=== PATIENT | female | born 1945 | race Caucasian/White ===

== ENCOUNTER 2017-08-18 16:22 | Emergency (ER) | payer MEDICARE, BC ==
[2017-08-18 17:36] LABS: ADD MAN DIFF? NO
[2017-08-18 17:37] LABS: BASO # 0.1 x10^3/uL (0.0-0.2); BASO % 1 % (0-3); EOS # 0.3 x10^3/uL (0.0-0.7); EOS % 3 % (0-3); HEMATOCRIT 41.6 % (36.0-47.0); HEMOGLOBIN 13.4 g/dL (12.0-15.5); LYMPH # 3.4 x10^3/uL (1.0-4.8); LYMPH % 29 % (24-48); MEAN CORPUSCULAR HEMOGLOBIN 29 pg (25-35); MEAN CORPUSCULAR HGB CONC 32 g/dL (31-37); MEAN CORPUSCULAR VOLUME 91 fL (79-100); MONO % 9 % (0-9); NEUT % 59 % (31-73); PLATELET COUNT 291 x10^3/uL (140-400); RED BLOOD COUNT 4.58 x10^6/uL (3.50-5.40); RED CELL DISTRIBUTION WIDTH 14.5 % (11.5-14.5); WHITE BLOOD COUNT 11.8 x10^3/uL (4.0-11.0)
[2017-08-18 17:51] LABS: ANION GAP 11 (6-14); BLOOD UREA NITROGEN 31 mg/dL (7-20); CARBON DIOXIDE 27 mmol/L (21-32); CHLORIDE 103 mmol/L (98-107); CREATININE 1.1 mg/dL (0.6-1.0); GFR 49.1; GLUCOSE 96 mg/dL (70-99); POTASSIUM 3.9 mmol/L (3.5-5.1); SODIUM 141 mmol/L (136-145)
[2017-08-18 17:57] LABS: ALBUMIN 3.1 g/dL (3.4-5.0); ALK PHOS 75 U/L (46-116); ALT (SGPT) 19 U/L (14-59); AST (SGOT) 15 U/L (15-37); DIRECT BILIRUBIN 0.1 mg/dL (0.0-0.2); TOTAL BILIRUBIN 0.3 mg/dL (0.2-1.0); TOTAL PROTEIN 7.7 g/dL (6.4-8.2)
[2017-08-18 18:00] LABS: TROPONINI < 0.017 ng/mL (0.000-0.055)
[2017-08-18 18:10] LABS: NT-PRO BNP 226 pg/mL (0-124)
[2017-08-18 18:11] LABS: CKMB MASS < 0.5 ng/mL (0.0-3.6); CREATINE KINASE 34 U/L (26-192)
[2017-08-18] MEDS: ACETAMINOPHEN 500 MG TABLET PO (18:27)
[2017-08-18 18:41] LABS: D-DIMER 0.37 ug/mlFEU (0.00-0.50)
[2017-08-18] MEDS: AZITHROMYCIN 250 MG TABLET. PO (19:32)
[2017-08-18] MEDS: BENZONATATE 100 MG CAPSULE. PO (19:32)
== END 2017-08-18 19:30 | disposition home or self-care (01) ==
LOC: ER 16:22
DX: J40 Bronchitis, not specified as acute or chronic (principal); R07.89 Other chest pain; R11.2 Nausea with vomiting, unspecified; E11.9 Type 2 diabetes mellitus without complications; J44.9 Chronic obstructive pulmonary disease, unspecified
CPT/HCPCS: 36415; 71046; 80048; 80076; 82553; 83880; 84484; 85025; 85379; 93005; 99285-25; Q0144

== ENCOUNTER 2021-10-11 18:49 | Inpatient (IN) | payer MEDICARE, BC ==
[~2021-10-11] VITALS: Ht 160 cm; Wt 122.0 kg
[~2021-10-11 18:49] MED LIST: ALBU2.5V8 INH; AZIT250T6 PO; BENZ100C PO; BUDE10.2 IH; BUPR150T8 PO; GABA300C18 PO; HYDR-2145 PO; HYDR-2761 PO; LEVO125T5 PO; MIRA25TA PO; MULT1TAB97 PO; OMEP20CA16 PO; PHEN37.53 PO; PRED20TA PO
[2021-10-11] MEDS ORDERED: IV NORMAL SALINE 1000ML BAG 1,000 ML IV ONE (19:30)
[2021-10-11] MEDS ORDERED: ONDANSETRON PF 4 MG/2 ML VIAL. IVP ONE (19:30)
[2021-10-11 19:40] LABS: BASO # 0.1 x10^3/uL (0.0-0.2); BASO % 1 % (0-3); EOS # 0.2 x10^3/uL (0.0-0.7); EOS % 2 % (0-3); HEMATOCRIT 40.2 % (36.0-47.0); LYMPH # 3.1 x10^3/uL (1.0-4.8); LYMPH % 32 % (24-48); MEAN CORPUSCULAR HEMOGLOBIN 30 pg (25-35); MEAN CORPUSCULAR HGB CONC 32 g/dL (31-37); MEAN CORPUSCULAR VOLUME 93 fL (79-100); MONO # 0.8 x10^3/uL (0.0-1.1); MONO % 8 % (0-9); NEUT # 5.4 x10^3/uL (1.8-7.7); NEUT % 57 % (31-73); PLATELET COUNT 348 x10^3/uL (140-400); RED BLOOD COUNT 4.34 x10^6/uL (3.50-5.40); RED CELL DISTRIBUTION WIDTH 14.4 % (11.5-14.5); WHITE BLOOD COUNT 9.6 x10^3/uL (4.0-11.0)
--- NOTE | 2021-10-11 19:41 | ED.ADGEN ---
Past Medical History Past Medical History: COPD, Diabetes-Type II, GERD, Hypertension, Hypothyroid, Other Additional Past Medical Histor: chronic low back pain Past Surgical History: Cholecystectomy, Hysterectomy, Knee Replacement, Other Additional Past Surgical Histo: gastric sleeve, cataracts Smoking Status: Former Smoker Alcohol Use: None Drug Use: None General Adult EDM: Chief Complaint: CHEST PAIN HPI: HPI: Patient is a 76 year old female coming in with right-sided chest pain. Patient states the pain is along her anterior rib cage below her right breast and travels around to the back. Patient states that she had COVID (despite being fully vaccinated) about 1.5 months ago and has never fully recovered. Patient states that she has been having diarrhea but over the past 2 weeks has been vomiting. States vomit is nonbloody nonbilious. Has not had any fevers or cough. States there is been to mucus in the emesis. Patient has a history of a hiatal hernia repair and gastric sleeve surgery, she is also had a cholecystectomy. Patient is complaining of epigastric pain as well. States she is worried she has had pneumonia because she has been hospitalized for it in the past. No recent sick contacts, recent travel, raw or undercooked food. Patient is also noted to be in A. fib with RVR, patient denies any history of irregular heartbeat, and does not take any blood thinners. She denies any left-sided chest pain. Patient states she has seen her primary care provider 1 week ago and 2 weeks ago. States she has not been getting any better. Review of Systems: Review of Systems: All other systems within normal limits except for as noted in the HPI Current Medications: Current Medications Medications (Trade) Dose Ordered Sig/Shane Start Time Stop Time Status Last Admin Dose Admin Info (CONTRAST GIVEN -- Rx MONITORING) 1 each PRN DAILY PRN 10/11/21 21:15 10/13/21 21:14 Iohexol (Omnipaque 350 Mg/ml) 80 ml 1X ONCE 10/11/21 21:30 10/11/21 21:31 DC 10/11/21 21:22 80 ML Ondansetron HCl (Zofran) 4 mg 1X ONCE 10/11/21 19:30 10/11/21 19:37 DC 10/11/21 19:58 4 MG Sodium Chloride 1,000 ml @ 1,000 mls/hr 1X ONCE 10/11/21 19:30 10/11/21 20:29 DC 10/11/21 19:59 1,000 MLS/HR Allergies: Allergies: Allergies Coded Allergies Type Severity Reaction Last Updated Verified No Known Drug Allergies 08/18/17 No Physical Exam: PE: Constitutional: Well developed, well nourished, no acute distress, non-toxic appearance. [] HENT: Normocephalic, atraumatic, bilateral external ears normal, nose normal. [] Eyes: PERRLA, conjunctiva normal, no discharge. [] Neck: No rigidity, supple, no stridor. [] Cardiovascular: Regular rate and rhythm, brisk cap refill. Tachycardic, irregularly irregular rhythm [] Lungs & Thorax: Non labored symmetric respirations, no tachypnea or respiratory distress. Lungs clear [] Abdomen: Soft, nondistended, epigastric tenderness without guarding or rebound. Skin: Warm, dry, no erythema, no rash. [] Back: Unremarkable Extremities: No deformities, range of motion grossly intact, no lower extremity edema [] Neurologic: Alert and oriented X 3, no focal deficits noted. [] Psychologic: Affect normal, judgement normal, mood normal. [] Current Patient Data: Labs: Laboratory Tests Test 10/11/21 19:09 10/11/21 20:08 10/11/21 20:36 White Blood Count 9.6 x10^3/uL (4.0-11.0) Red Blood Count 4.34 x10^6/uL (3.50-5.40) Hemoglobin 13.0 g/dL (12.0-15.5) Hematocrit 40.2 % (36.0-47.0) Mean Corpuscular Volume 93 fL (79-100) Mean Corpuscular Hemoglobin 30 pg (25-35) Mean Corpuscular Hemoglobin Concent 32 g/dL (31-37) Red Cell Distribution Width 14.4 % (11.5-14.5) Platelet Count 348 x10^3/uL (140-400) Neutrophils (%) (Auto) 57 % (31-73) Lymphocytes (%) (Auto) 32 % (24-48) Monocytes (%) (Auto) 8 % (0-9) Eosinophils (%) (Auto) 2 % (0-3) Basophils (%) (Auto) 1 % (0-3) Neutrophils # (Auto) 5.4 x10^3/uL (1.8-7.7) Lymphocytes # (Auto) 3.1 x10^3/uL (1.0-4.8) Monocytes # (Auto) 0.8 x10^3/uL (0.0-1.1) Eosinophils # (Auto) 0.2 x10^3/uL (0.0-0.7) Basophils # (Auto) 0.1 x10^3/uL (0.0-0.2) Prothrombin Time 13.0 SEC (11.7-14.0) Prothrombin Time INR 1.0 (0.8-1.1) D-Dimer ([place]) 0.57 ug/mlFEU (0.00-0.50) H Sodium Level 139 mmol/L (136-145) Potassium Level 3.9 mmol/L (3.5-5.1) Chloride Level 102 mmol/L (98-107) Carbon Dioxide Level 28 mmol/L (21-32) Anion Gap 9 (6-14) Blood Urea Nitrogen 15 mg/dL (7-20) Creatinine 1.2 mg/dL (0.6-1.0) H Estimated GFR (Cockcroft-Gault) 43.9 BUN/Creatinine Ratio 13 (6-20) Glucose Level 105 mg/dL (70-99) H Lactic Acid Level 1.1 mmol/L (0.4-2.0) Calcium Level 9.5 mg/dL (8.5-10.1) Phosphorus Level 2.9 mg/dL (2.6-4.7) Magnesium Level 1.8 mg/dL (1.8-2.4) Total Bilirubin 0.4 mg/dL (0.2-1.0) Aspartate Amino Transferase (AST) 12 U/L (15-37) L Alanine Aminotransferase (ALT) 17 U/L (14-59) Alkaline Phosphatase 76 U/L (46-116) Troponin I High Sensitivity 6 ng/L (4-50) DL-Lqe-E-Type Natriuretic Peptide 2070 pg/mL (0-124) H Total Protein 8.1 g/dL (6.4-8.2) Albumin 3.0 g/dL (3.4-5.0) L Albumin/Globulin Ratio 0.6 (1.0-1.7) L Lipase 28 U/L (73-393) L Influenza Type A Antigen Negative (NEGATIVE) Influenza Type B Antigen Negative (NEGATIVE) SARS-CoV-2 Antigen (Rapid) Negative (NEGATIVE) Urine Collection Type Unknown Urine Color Yellow Urine Clarity Clear Urine pH 5.5 (<5.0-8.0) Urine Specific [place] 1.025 (1.000-1.030) Urine Protein Negative mg/dL (NEG-TRACE) Urine Glucose (UA) Negative mg/dL (NEG) Urine Ketones (Stick) Trace mg/dL (NEG) Urine Blood Negative (NEG) Urine Nitrite Negative (NEG) Urine Bilirubin Small (NEG) Urine Urobilinogen Dipstick 0.2 mg/dL (0.2 mg/dL) Urine Leukocyte Esterase Negative (NEG) Urine RBC 0 /HPF (0-2) Urine WBC 1-4 /HPF (0-4) Urine Squamous Epithelial Cells Mod /LPF Urine Bacteria Few /HPF (0-FEW) Urine Hyaline Casts Few /HPF Urine Mucus Mod /LPF Laboratory Tests 10/11/21 19:09 Laboratory Tests 10/11/21 19:09 Vital Signs: Vital Signs Date Time Temp Pulse Resp B/P (MAP) Pulse Ox O2 Delivery O2 Flow Rate FiO2 10/11/21 21:32 124 24 144/60 (88) 96 Room Air 10/11/21 18:57 98.0 98.0 EKG: EKG: Irregular regular rhythm, heart rate 135 bpm, slight lax left axis deviation, no ST elevation or depression. When compared to EKG dated 08-18-17 she is in normal sinus rhythm at that time [] Heart Score: C/O Chest Pain: Yes HEART Score for Chest Pain: HEART Score for Chest Pain Response (Comments) Value History Slighlty/Non-Suspicious 0 ECG Nonspecific Repolarizatio 1 Age > 65 2 Risk Factors 1 or 2 Risk Factors 1 Troponin < Normal Limit 0 Total 4 Risk Factors: Risk Factors: DM, Current or recent (<one month) smoker, HTN, HLP, family history of CAD, obesity. Risk Scores: Score 0 - 3: 2.5% MACE over next 6 weeks - Discharge Home Score 4 - 6: 20.3% MACE over next 6 weeks - Admit for Clinical Observation Score 7 - 10: 72.7% MACE over next 6 weeks - Early Invasive Strategies Radiology/Procedures: Radiology/Procedures: [facility] [address] [place] [address] IMAGING REPORT Signed PATIENT: YADI CUNNINGHAM ACCOUNT: [id number] : 1945 LOCATION: ER AGE: 76 SEX: F EXAM STATUS: REG ER ORD. PHYSICIAN: LUIZ MESSER MD REASON: right chest pain and epigastric pain, OMNI 350 80 ML IV PROCEDURE: CT ANGIO CHEST W ABD PEL W/ INDICATION: Reason: right chest pain and epigastric pain, OMNI 350 80 ML IV / Spl. Instructions: / History: . COMPARISON: None TECHNIQUE: Axial CT images obtained through the chest, abdomen and pelvis with contrast. 3- dimensional angiographic images processed One or more of the following individualized dose reduction techniques were utilized for this examination: 1. Automated exposure control; 2. Adjustment of the mA and/or kV according to patient size; 3. Use of iterative reconstruction technique. FINDINGS: There is some pulmonary nodules measuring up to 6 mm within the left lung. Mild opacities at left greater than right lung base with a portion appearing linear. There is also some groundglass opacities. Right lung nodules are also seen including one anteriorly measuring 6 mm. Coronary artery calcific atherosclerosis. Severe atherosclerotic disease of the thoracic aorta. There is dilatation throughout the esophagus with intraluminal content as well as regions of wall thickening. There is a mass seen within the mediastinum abutting the esophagus and airway approximately 39 x 45 mm but a portion of this measurement includes mediastinal structures. No embolus in the main, right main or left main pulmonary artery with peripheral vessels obscured by motion. Atherosclerotic disease throughout the abdominal aorta. Degenerative changes throughout the spine with multilevel central canal and neural foraminal stenosis. Multiple ribs with angulation bilaterally could be from fractures of unknown age. Postcholecystectomy changes with prominence of the bile ducts which is a common finding postoperatively. Liver is mildly prominent in size. Fatty atrophy of the pancreas. There is a suspected small duodenal diverticulum. Spleen not grossly enlarged. Nonobstructive left renal stone measuring 15 mm without hydronephrosis. Urinary bladder is decompressed. Scoliotic curvature of the spine. Fat-containing umbilical hernia. Colonic diverticulosis. No dilated loops of bowel to suggest obstruction. Degenerative changes hips. IMPRESSION: * Mass is identified within the mediastinum. Differential considerations would include esophageal origin neoplasm or lymphadenopathy from causes such as lung origin neoplasm. The esophagus is also distended with intraluminal content and has some masslike wall thickening. * Bilateral lung nodules are identified and are indeterminate in nature and follow-up will be needed to ensure no growth. * Mild opacities at the lower lungs including linear and groundglass component. Could be from atelectasis but mild infiltrate is not excluded. * Atherosclerotic disease throughout the vasculature. * No evidence of bowel obstruction. * Angulations of the bilateral ribs which could be from rib fractures of unknown age. * Severe degenerative changes of the spine with multilevel central canal and neural foraminal stenosis. * Dilation of the bile ducts with some enhancement seen at the distal common bile duct. Could be secondary to a stricture within the area with distal common bile duct or ampullary mass also in differential. Electronically signed by: Joey Estes MD (10/11/2021 10:32 PM) [id number]- [id number] DICTATED and SIGNED BY: JOEY ESTES MD DATE: 10/11/21 [id number] [][facility] [address] [place] [address] IMAGING REPORT Signed PATIENT: YADI CUNNINGHAM ACCOUNT: [id number] : 1945 LOCATION: [address] [place] [address] AGE: 76 SEX: F EXAM STATUS: ADM IN ORD. PHYSICIAN: LUIZ MESSER MD REASON: RUQ, biliary dilation PROCEDURE: ABDOMEN LTD US ABDOMEN LIMITED History: Reason: RUQ, biliary dilation / Spl. Instructions: / History: Comparison: CT October 11, 2021. Technique: Transabdominal ultrasound images are obtained of the right upper quadrant. Findings: Liver is normal in echogenicity. Right hepatic lobe measures 13.7 cm. Portal flow is hepatopedal. Prior cholecystectomy. Common bile duct not identified due to overlying structures. Visualized pancreas not well seen due to overlying bowel gas. The right kidney measures 9.7 x 3.6 x 4.3 cm. No hydronephrosis. Aorta and IVC not well seen due to overlying structures. IMPRESSION: 1. Degraded evaluation. No definite acute abdominal pathology. 2. Common bile is not identified. Prior cholecystectomy. If persistent clinical concern, MRI/MRCP can further evaluate. Electronically signed by: Stephan Rudolph DO (10/12/2021 12:43 AM) [facility] DICTATED and SIGNED BY: STEPHAN RUDOLPH DO DATE: 10/12/21 [id number] 0 Course & Med Decision Making: Course & Med Decision Making Pertinent Labs and Imaging studies reviewed. (See chart for details) Patient in new onset A. fib with RVR. Will admit on diltiazem for cardiology evaluation. [] Dragon Disclaimer: Dragon Disclaimer: This electronic medical record was generated, in whole or in part, using a voice recognition dictation system. Departure Departure Impression: Primary Impression: Nausea & vomiting Additional Impression: New onset atrial fibrillation Disposition: ADMITTED INPATIENT Admitting Physician: HIMS Condition: STABLE Referrals: ANGELICA MATTHEWS DO (PCP) Problem Qualifiers LUIZ MESSER MD Oct 11, 2021 19:41
[2021-10-11 19:57] LABS: CALCIUM 9.5 mg/dL (8.5-10.1); CREATININE 1.2 mg/dL (0.6-1.0); GFR 43.9; POTASSIUM 3.9 mmol/L (3.5-5.1)
[2021-10-11 19:59] LABS: D-DIMER 0.57 ug/mlFEU (0.00-0.50)
[2021-10-11 20:03] LABS: ALBUMIN/GLOBULIN RATIO 0.6 (1.0-1.7); MAGNESIUM 1.8 mg/dL (1.8-2.4); PHOSPHORUS 2.9 mg/dL (2.6-4.7); TOTAL BILIRUBIN 0.4 mg/dL (0.2-1.0); TOTAL PROTEIN 8.1 g/dL (6.4-8.2)
--- NOTE | 2021-10-11 20:13 | EKG ---
[facility] [address] [place] [address] Test Date: 2021-10-11 Test Time: 19:04:14 Pat Name: YADI CUNNINGHAM Department: Room: Gender: F [employer]: : 1945 Requested By: LUIZ MESSER Order Number: [id number] Reading MD: Anil Alvarado Measurements Intervals [place] Rate: 135 P: [place]: QRS: -5 QRSD: 90 T: 22 QT: 288 QTc: 436 Interpretive Statements ATRIAL FIBRILLATION WITH RVR Electronically Signed On 10-12-2021 18:31:45 SEEING [employer]G TE[employer]ER by Anil Alvarado
[2021-10-11 20:47] LABS: INFLUENZA A PATIENT NEGATIVE (NEGATIVE); INFLUENZA B PATIENT NEGATIVE (NEGATIVE)
[2021-10-11 20:50] LABS: BILIRUBIN,URINE SMALL (NEG); CLARITY,URINE CLEAR; COLOR,URINE YELLOW; NITRITE,URINE NEGATIVE (NEG); PH,URINE 5.5 (<5.0-8.0); PROTEIN,URINE NEGATIVE (NEG-TRACE); UROBILINOGEN,URINE 0.2 mg/dL (0.2 mg/dL)
[2021-10-11 20:52] LABS: BACTERIA,URINE FEW /HPF (0-FEW); HYALINE CASTS, URINE FEW /HPF; RBC,URINE 0 /HPF (0-2)
[2021-10-11] MEDS ORDERED: CONTRAST GIVEN. MC PRN (21:15)
[2021-10-11] MEDS ORDERED: IOHEXOL 350 MG/ML 100 ML VIAL. IV ONE (21:30)
[2021-10-11] MEDS ORDERED: dilTIAZem HCL 125 MG in IV DEXTROSE 5% 100ML 100 ML IV ONE (22:00)
[2021-10-11] MEDS ORDERED: ACETAMINOPHEN 325 MG TABLET. PO PRN (22:15)
[2021-10-11] MEDS ORDERED: ONDANSETRON PF 4 MG/2 ML VIAL. IVP PRN (22:15)
[2021-10-11] MEDS ORDERED: fentaNYL PF VIAL 100 MCG/2 ML VIAL IVP PRN (22:15)
--- NOTE | 2021-10-11 22:34 | RAD ---
INDICATION: Reason: right chest pain and epigastric pain, OMNI 350 80 ML IV / Spl. Instructions: / H istory: . COMPARISON: None TECHNIQUE: Axial CT images obtained through the chest, abdomen and pelvis with contrast. 3-dimensional angiograp hic images processed One or more of the following individualized dose reduction techniques were utilized for this examinat ion: 1. Automated exposure control; 2. Adjustment of the mA and/or kV according to patient size; 3 . Use of iterative reconstruction technique. FINDINGS: There is some pulmonary nodules measuring up to 6 mm within the left lung. Mild opacities at left gre ater than right lung base with a portion appearing linear. There is also some groundglass opacities. Right lung nodules are also seen including one anteriorly m easuring 6 mm. Coronary artery calcific atherosclerosis. Severe atherosclerotic disease of the thoracic aorta. There is dilatation throughout the esophagus with intraluminal content as well as regions of wall thi ckening. There is a mass seen within the mediastinum abutting the esophagus and airway approximately 39 x 45 mm but a portion of this measurement includes mediastinal structures. No embolus in the main, right main or left main pulmonary artery with peripheral vessels obscured by motion. Atherosclerotic disease throughout the abdominal aorta. Degenerative changes throughout the spine with multilevel central canal and neural foraminal stenosis . Multiple ribs with angulation bilaterally could be from fractures of unknown age. Postcholecystectomy changes with prominence of the bile ducts which is a common finding postoperative ly. Liver is mildly prominent in size. Fatty atrophy of the pancreas. There is a suspected small duodenal diverticulum. Spleen not grossly enlarged. Nonobstructive left renal stone measuring 15 mm without hydronephrosis. Urinary bladder is decompress ed. Scoliotic curvature of the spine. Fat-containing umbilical hernia. Colonic diverticulosis. No dilated loops of bowel to suggest obstruction. Degenerative changes hips. IMPRESSION: * Mass is identified within the mediastinum. Differential considerations would include esophageal or igin neoplasm or lymphadenopathy from causes such as lung origin neoplasm. The esophagus is also dist ended with intraluminal content and has some masslike wall thickening. * Bilateral lung nodules are identified and are indeterminate in nature and follow-up will be needed to ensure no growth. * Mild opacities at the lower lungs including linear and groundglass component. Could be from atelec tasis but mild infiltrate is not excluded. * Atherosclerotic disease throughout the vasculature. * No evidence of bowel obstruction. * Angulations of the bilateral ribs which could be from rib fractures of unknown age. * Severe degenerative changes of the spine with multilevel central canal and neural foraminal stenos is. * Dilation of the bile ducts with some enhancement seen at the distal common bile duct. Could be sec ondary to a stricture within the area with distal common bile duct or ampullary mass also in differen tial. Electronically signed by: Robert Scales MD (10/11/2021 10:32 PM) [id number]
[2021-10-12] VITALS (9 sets, daily range): BP systolic 79–124; BP diastolic 50–90
--- NOTE | 2021-10-12 00:45 | RAD ---
US ABDOMEN LIMITED History: Reason: RUQ, biliary dilation / Spl. Instructions: / History: Comparison: CT October 11, 2021. Technique: Transabdominal ultrasound images are obtained of the right upper quadrant. Findings: Liver is normal in echogenicity. Right hepatic lobe measures 13.7 cm. Portal flow is hepatopedal. Prior cholecystectomy. Common bile duct not identified due to overlying structures. Visualized pancreas not well seen due to overlying bowel gas. The right kidney measures 9.7 x 3.6 x 4.3 cm. No hydronephrosis. Aorta and IVC not well seen due to overlying structures. IMPRESSION: 1. Degraded evaluation. No definite acute abdominal pathology. 2. Common bile is not identified. Prior cholecystectomy. If persistent clinical concern, MRI/MRCP ca n further evaluate. Electronically signed by: Stephan Rudolph DO (10/12/2021 12:43 AM) [facility]
[2021-10-12 04:20] LABS: BASO % 0 % (0-3); EOS # 0.1 x10^3/uL (0.0-0.7); EOS % 2 % (0-3); HEMATOCRIT 35.4 % (36.0-47.0); HEMOGLOBIN 11.5 g/dL (12.0-15.5); LYMPH # 2.3 x10^3/uL (1.0-4.8); LYMPH % 30 % (24-48); MEAN CORPUSCULAR HEMOGLOBIN 31 pg (25-35); MEAN CORPUSCULAR HGB CONC 33 g/dL (31-37); MEAN CORPUSCULAR VOLUME 94 fL (79-100); MONO # 0.8 x10^3/uL (0.0-1.1); MONO % 10 % (0-9); NEUT # 4.4 x10^3/uL (1.8-7.7); NEUT % 58 % (31-73); PLATELET COUNT 279 x10^3/uL (140-400); RED BLOOD COUNT 3.78 x10^6/uL (3.50-5.40); WHITE BLOOD COUNT 7.7 x10^3/uL (4.0-11.0)
[2021-10-12] MEDS ORDERED: dilTIAZem HCL 125 MG in IV DEXTROSE 5% 100ML 100 ML IV PRN (04:30)
[2021-10-12] MEDS ORDERED: CALC500T54 PO (05:16)
[2021-10-12] MEDS ORDERED: LEVO100T5 PO (05:16)
[2021-10-12] MEDS ORDERED: HYDR-2765 PO (05:16)
[2021-10-12] MEDS ORDERED: URSO250T3 PO (05:16)
[2021-10-12] MEDS ORDERED: VIBE75TA PO (05:16)
[2021-10-12] MEDS ORDERED: METF10007 PO (05:20)
[2021-10-12 05:21] LABS: CALCIUM 8.7 mg/dL (8.5-10.1); CREATININE 1.1 mg/dL (0.6-1.0); GFR 48.6; POTASSIUM 3.6 mmol/L (3.5-5.1)
[2021-10-12] MEDS: LEVOTHYROXINE 100 MCG TABLET PO SCH (10:11)
[2021-10-12] MEDS: buPROPion SR 150 MG TABLET.SA PO SCH ×2 (10:16→20:29)
[2021-10-12] MEDS: GABAPENTIN 300 MG CAPSULE. PO SCH ×2 (10:16→20:29)
[2021-10-12] MEDS: HYDROcodone/APAP 7.5/325MG 1 TAB TABLET PO PRN ×2 (12:11→21:08)
--- NOTE | 2021-10-12 12:23 | PDOC1 ---
History and Physical Date of Admission Date of Admission DATE: 10/12/21 TIME: 12:17 Source Source: Chart review, Patient History of Present Illness History of Present Illness Ms Ca is a 76 year old female admit from ER with acute right-sided chest pain. she thought pleurisy because the pain went ot her back, no palpitations, soem shortnes of breath. She was nauseated and vomited last night Pain 6/10, better thsi AM She had recent COVID, was vaccinated and has been weak since, with occassional GI symtoms. admti for A. fib with RVR, no prior history, feels better on cardizem gtt this AM Past Medical History Past Medical History peripheral neuropathy Cardiovascular: HTN Pulmonary: No pertinent hx GI: GERD Musculoskeletal: low back pain, Osteoarthritis Rheumatologic: No pertinent hx Endocrine: Diabetes Current Problem List Problem List Problems Medical Problems: (1) Nausea & vomiting Status: Acute (2) New onset atrial fibrillation Status: Acute Current Medications Current Medications Current Medications Sodium Chloride 1,000 ml @ 1,000 mls/hr 1X ONCE IV Last administered on 10/11/21at 19:59; Start 10/11/21 at 19:30; Stop 10/11/21 at 20:29; Status DC Ondansetron HCl (Zofran) 4 mg 1X ONCE IVP Last administered on 10/11/21at 19:58; Start 10/11/21 at 19:30; Stop 10/11/21 at 19:37; Status DC Iohexol (Omnipaque 350 Mg/ml) 80 ml 1X ONCE IV Last administered on 10/11/21at 21:22; Start 10/11/21 at 21:30; Stop 10/11/21 at 21:31; Status DC Info (CONTRAST GIVEN -- Rx MONITORING) 1 each PRN DAILY PRN MC SEE COMMENTS; Start 10/11/21 at 21:15; Stop 10/13/21 at 21:14 Diltiazem HCl (Cardizem Iv Push) 10 mg 1X ONCE IVP Last administered on 10/11/21at 21:59; Start 10/11/21 at 22:00; Stop 10/11/21 at 22:01; Status DC Diltiazem HCl 125 mg/Sodium Chloride 125 ml @ 5 mls/hr 1X ONCE IV ; Start 10/01 08/24 at 22:00; Stop 10/11/21 at 21:48; Status DC Diltiazem HCl 125 mg/Dextrose 125 ml @ 5 mls/hr 1X ONCE IV Last administered on 10/11/21at 22:00; Start 10/11/21 at 22:00; Stop 10/12/21 at 11:26; Status DC Ondansetron HCl (Zofran) 4 mg PRN Q8HRS PRN IVP NAUSEA/VOMITING 1ST CHOICE; Start 10/11/21 at 22:15; Stop 10/12/21 at 22:14 Fentanyl Citrate (Fentanyl 2ml Vial) 50 mcg PRN Q1HR PRN IVP SEVERE PAIN 7-10; Start 10/11/21 at 22:15; Stop 10/12/21 at 22:14 Acetaminophen (Tylenol) 650 mg PRN Q4HRS PRN PO FEVER > 100.3'F; Start 10/11/21 at 22:15; Stop 10/12/21 at 22:14 Diltiazem HCl 125 mg/Dextrose 125 ml @ 5 mls/hr CONT PRN PRN IV AFIB Last administered on 10/12/21at 04:26; Start 10/12/21 at 04:30 Bupropion HCl (Wellbutrin Sr) 150 mg BID PO Last administered on 10/12/21at 10:16; Start 10/12/21 at 11:00 Gabapentin (Neurontin) 300 mg TID PO Last administered on 10/12/21at 10:16; Start 10/12/21 at 12:00 Acetaminophen/ Hydrocodone Bitart (Lortab 7.5/325) 1 tab PRN Q6HRS PRN PO PAIN Last administered on 10/12/21at 12:11; Start 10/12/21 at 10:15 Levothyroxine Sodium (Synthroid) 100 mcg DAILY06 PO ; Start 10/12/21 at 11:00 Active Scripts Active Reported Metformin Hcl 1,000 Mg Tablet 1,000 Mg PO BIDWMEALS Metformin 1000mg tab, takes 1/2 to 2 tabs daily Calcium (Calcium Carbonate) 500 Mg Tab.chew 600 Mg PO DAILY Mary (Ursodiol) 250 Mg Tablet 300 Mg PO DAILY Levothyroxine Sodium 100 Mcg Tablet 1 Tab PO DAILY Hydrocodone-Apap 7.5-325 (Hydrocodone Bit/Acetaminophen) 1 Tab Tablet 1 Tab PO PRN Q6HRS PRN Gemtesa (Vibegron) 75 Mg Tablet 75 Mg PO DAILY Phentermine Hcl 37.5 Mg Capsule 1 Cap PO DAILYWBKFT Omeprazole 20 Mg Capsule. 1 Cap PO DAILY Hydrochlorothiazide Tablet (Hydrochlorothiazide) 25 Mg Tablet 1 Tab PO DAILY Gabapentin (Gabapentin) 300 Mg Capsule 300 Mg PO TID Daily Multiple Vitamin (Multivitamin) 1 Each Tablet 1 Each PO DAILY Wellbutrin Sr (Bupropion Hcl) 150 Mg Tablet.er 1 Tab PO BID Allergies Allergies: Coded Allergies: No Known Drug Allergies (Unverified , 08/18/17) ROS General: No: Chills, Night Sweats, Fatigue, Malaise, Appetite, Other PSYCHOLOGICAL ROS: YES: Anxiety, Sleep disturbances; No: Behavioral Disorder, Concentration difficultie, Decreased libido, Depression, Disorientation, Hallucinations, Hostility, Irritablity, Memory difficulties, Mood Swings, Obsessive thoughts, Other Eyes: No Blurry vision, No Decreased vision, No Double vision, No Dry eyes, No Excessive tearing, No Eye Pain, No Itchy Eyes, No Loss of vision, No P hotophobia, No Scotomata, No Uses contacts, No Uses glasses, No Other HEENT: No: Heacaches, Visual Changes, Hearing change, Nasal congestion, Nasal discharge, Oral lesions, Sinus pain, Sore Throat, Epistaxis, Sneezing, Snoring, Tinnitus, Vertigo, Vocal changes, Other Respiratory: YES: Pleuritic Pain; No: Cough, Hemoptysis, Orthopnea, Shortness of breath, SOB with excertion, Sputum Changes, Stridor, Tachypnea, Wheezing, Other Cardiovascular: yes Chest Pain; No Palpitations, No Orthopnea, No Paroxysmal Noc. Dyspnea, No Edema, No Lt Headedness, No Other Gastrointestinal: Yes Nausea; No Vomiting, No Abdominal Pain, No Diarrhea, No Constipation, No Melena, No Hematochezia, No Other Genitourinary: No Dysuria, No Frequency, No Incontinence, No Hematuria, No Retention, No Discharge, No Urgency, No Pain, No Flank Pain, No Other, No , No , No , No , No , No , No Musculoskeletal: Yes Joint Pain, Yes Joint Stiffness Neurological: No Behavorial Changes, No Bowel/Bladder ControlChng, No Confusion, No Dizziness, No Gait Disturbance, No Headaches, No Impaired Coord/balance, No Memory Loss, No Numbness/Tingling, No Seizures, No Speech Problems, No Tremors, No Visual Changes, No Weakness, No Other Skin: No Dry Skin, No Eczema, No Hair Changes, No Lumps, No Mole Changes, No Mottling, No Nail Changes, No Pruritus, No Rash, No Skin Lesion Changes, No Other, No Acne Physical Exam General: Alert, Oriented X3, Cooperative, mild distress HEENT: Atraumatic Lungs: Clear to auscultation Heart: S1S2, RRR Abdomen: Soft (obese) Extremities: No clubbing Skin: No significant lesion Neuro: Normal speech, Normal tone, Sensation intact Psych/Mental Status: Mental status NL, Mood NL Vitals Vitals Vital Signs Date Time Temp Pulse Resp B/P (MAP) Pulse Ox O2 Delivery O2 Flow Rate FiO2 10/12/21 11:00 98.1 80 18 97/56 (70) Room Air 98.1 10/12/21 07:00 94 10/12/21 00:25 3.0 Labs Labs Laboratory Tests Test 10/11/21 19:09 10/11/21 20:08 10/11/21 20:36 10/12/21 04:00 White Blood Count 9.6 x10^3/uL (4.0-11.0) 7.7 x10^3/uL (4.0-11.0) Red Blood Count 4.34 x10^6/uL (3.50-5.40) 3.78 x10^6/uL (3.50-5.40) Hemoglobin 13.0 g/dL (12.0-15.5) 11.5 g/dL (12.0-15.5) Hematocrit 40.2 % (36.0-47.0) 35.4 % (36.0-47.0) Mean Corpuscular Volume 93 fL (79-100) 94 fL (79-100) Mean Corpuscular Hemoglobin 30 pg (25-35) 31 pg (25-35) Mean Corpuscular Hemoglobin Concent 32 g/dL (31-37) 33 g/dL (31-37) Red Cell Distribution Width 14.4 % (11.5-14.5) 14.0 % (11.5-14.5) Platelet Count 348 x10^3/uL (140-400) 279 x10^3/uL (140-400) Neutrophils (%) (Auto) 57 % (31-73) 58 % (31-73) Lymphocytes (%) (Auto) 32 % (24-48) 30 % (24-48) Monocytes (%) (Auto) 8 % (0-9) 10 % (0-9) Eosinophils (%) (Auto) 2 % (0-3) 2 % (0-3) Basophils (%) (Auto) 1 % (0-3) 0 % (0-3) Neutrophils # (Auto) 5.4 x10^3/uL (1.8-7.7) 4.4 x10^3/uL (1.8-7.7) Lymphocytes # (Auto) 3.1 x10^3/uL (1.0-4.8) 2.3 x10^3/uL (1.0-4.8) Monocytes # (Auto) 0.8 x10^3/uL (0.0-1.1) 0.8 x10^3/uL (0.0-1.1) Eosinophils # (Auto) 0.2 x10^3/uL (0.0-0.7) 0.1 x10^3/uL (0.0-0.7) Basophils # (Auto) 0.1 x10^3/uL (0.0-0.2) 0.0 x10^3/uL (0.0-0.2) Prothrombin Time 13.0 SEC (11.7-14.0) Prothromb Time International Ratio 1.0 (0.8-1.1) D-Dimer ([place]) 0.57 ug/mlFEU (0.00-0.50) Sodium Level 139 mmol/L (136-145) 141 mmol/L (136-145) Potassium Level 3.9 mmol/L (3.5-5.1) 3.6 mmol/L (3.5-5.1) Chloride Level 102 mmol/L (98-107) 105 mmol/L (98-107) Carbon Dioxide Level 28 mmol/L (21-32) 28 mmol/L (21-32) Anion Gap 9 (6-14) 8 (6-14) Blood Urea Nitrogen 15 mg/dL (7-20) 15 mg/dL (7-20) Creatinine 1.2 mg/dL (0.6-1.0) 1.1 mg/dL (0.6-1.0) Estimated GFR (Cockcroft-Gault) 43.9 48.6 BUN/Creatinine Ratio 13 (6-20) Glucose Level 105 mg/dL (70-99) 101 mg/dL (70-99) Lactic Acid Level 1.1 mmol/L (0.4-2.0) Calcium Level 9.5 mg/dL (8.5-10.1) 8.7 mg/dL (8.5-10.1) Phosphorus Level 2.9 mg/dL (2.6-4.7) Magnesium Level 1.8 mg/dL (1.8-2.4) Total Bilirubin 0.4 mg/dL (0.2-1.0) Aspartate Amino Transf (AST/SGOT) 12 U/L (15-37) Alanine Aminotransferase (ALT/SGPT) 17 U/L (14-59) Alkaline Phosphatase 76 U/L (46-116) Troponin I High Sensitivity 6 ng/L (4-50) VT-Oof-D-Type Natriuretic Peptide 2070 pg/mL (0-124) Total Protein 8.1 g/dL (6.4-8.2) Albumin 3.0 g/dL (3.4-5.0) Albumin/Globulin Ratio 0.6 (1.0-1.7) Lipase 28 U/L (73-393) Influenza Type A Antigen Negative (NEGATIVE) Influenza Type B Antigen Negative (NEGATIVE) SARS-CoV-2 Antigen (Rapid) Negative (NEGATIVE) Urine Collection Type Unknown Urine Color Yellow Urine Clarity Clear Urine pH 5.5 (<5.0-8.0) Urine Specific [place] 1.025 (1.000-1.030) Urine Protein Negative mg/dL (NEG-TRACE) Urine Glucose (UA) Negative mg/dL (NEG) Urine Ketones (Stick) Trace mg/dL (NEG) Urine Blood Negative (NEG) Urine Nitrite Negative (NEG) Urine Bilirubin Small (NEG) Urine Urobilinogen Dipstick 0.2 mg/dL (0.2 mg/dL) Urine Leukocyte Esterase Negative (NEG) Urine RBC 0 /HPF (0-2) Urine WBC 1-4 /HPF (0-4) Urine Squamous Epithelial Cells Mod /LPF Urine Bacteria Few /HPF (0-FEW) Urine Hyaline Casts Few /HPF Urine Mucus Mod /LPF Test 10/12/21 07:48 10/12/21 11:27 Glucose (Fingerstick) 93 mg/dL (70-99) 106 mg/dL (70-99) Laboratory Tests Test 10/11/21 19:09 10/11/21 20:08 10/11/21 20:36 10/12/21 04:00 White Blood Count 9.6 x10^3/uL (4.0-11.0) 7.7 x10^3/uL (4.0-11.0) Red Blood Count 4.34 x10^6/uL (3.50-5.40) 3.78 x10^6/uL (3.50-5.40) Hemoglobin 13.0 g/dL (12.0-15.5) 11.5 g/dL (12.0-15.5) Hematocrit 40.2 % (36.0-47.0) 35.4 % (36.0-47.0) Mean Corpuscular Volume 93 fL (79-100) 94 fL (79-100) Mean Corpuscular Hemoglobin 30 pg (25-35) 31 pg (25-35) Mean Corpuscular Hemoglobin Concent 32 g/dL (31-37) 33 g/dL (31-37) Red Cell Distribution Width 14.4 % (11.5-14.5) 14.0 % (11.5-14.5) Platelet Count 348 x10^3/uL (140-400) 279 x10^3/uL (140-400) Neutrophils (%) (Auto) 57 % (31-73) 58 % (31-73) Lymphocytes (%) (Auto) 32 % (24-48) 30 % (24-48) Monocytes (%) (Auto) 8 % (0-9) 10 % (0-9) Eosinophils (%) (Auto) 2 % (0-3) 2 % (0-3) Basophils (%) (Auto) 1 % (0-3) 0 % (0-3) Neutrophils # (Auto) 5.4 x10^3/uL (1.8-7.7) 4.4 x10^3/uL (1.8-7.7) Lymphocytes # (Auto) 3.1 x10^3/uL (1.0-4.8) 2.3 x10^3/uL (1.0-4.8) Monocytes # (Auto) 0.8 x10^3/uL (0.0-1.1) 0.8 x10^3/uL (0.0-1.1) Eosinophils # (Auto) 0.2 x10^3/uL (0.0-0.7) 0.1 x10^3/uL (0.0-0.7) Basophils # (Auto) 0.1 x10^3/uL (0.0-0.2) 0.0 x10^3/uL (0.0-0.2) Prothrombin Time 13.0 SEC (11.7-14.0) Prothromb Time International Ratio 1.0 (0.8-1.1) D-Dimer ([place]) 0.57 ug/mlFEU (0.00-0.50) Sodium Level 139 mmol/L (136-145) 141 mmol/L (136-145) Potassium Level 3.9 mmol/L (3.5-5.1) 3.6 mmol/L (3.5-5.1) Chloride Level 102 mmol/L (98-107) 105 mmol/L (98-107) Carbon Dioxide Level 28 mmol/L (21-32) 28 mmol/L (21-32) Anion Gap 9 (6-14) 8 (6-14) Blood Urea Nitrogen 15 mg/dL (7-20) 15 mg/dL (7-20) Creatinine 1.2 mg/dL (0.6-1.0) 1.1 mg/dL (0.6-1.0) Estimated GFR (Cockcroft-Gault) 43.9 48.6 BUN/Creatinine Ratio 13 (6-20) Glucose Level 105 mg/dL (70-99) 101 mg/dL (70-99) Lactic Acid Level 1.1 mmol/L (0.4-2.0) Calcium Level 9.5 mg/dL (8.5-10.1) 8.7 mg/dL (8.5-10.1) Phosphorus Level 2.9 mg/dL (2.6-4.7) Magnesium Level 1.8 mg/dL (1.8-2.4) Total Bilirubin 0.4 mg/dL (0.2-1.0) Aspartate Amino Transf (AST/SGOT) 12 U/L (15-37) Alanine Aminotransferase (ALT/SGPT) 17 U/L (14-59) Alkaline Phosphatase 76 U/L (46-116) Troponin I High Sensitivity 6 ng/L (4-50) GV-Tyn-A-Type Natriuretic Peptide 2070 pg/mL (0-124) Total Protein 8.1 g/dL (6.4-8.2) Albumin 3.0 g/dL (3.4-5.0) Albumin/Globulin Ratio 0.6 (1.0-1.7) Lipase 28 U/L (73-393) Influenza Type A Antigen Negative (NEGATIVE) Influenza Type B Antigen Negative (NEGATIVE) SARS-CoV-2 Antigen (Rapid) Negative (NEGATIVE) Urine Collection Type Unknown Urine Color Yellow Urine Clarity Clear Urine pH 5.5 (<5.0-8.0) Urine Specific [place] 1.025 (1.000-1.030) Urine Protein Negative mg/dL (NEG-TRACE) Urine Glucose (UA) Negative mg/dL (NEG) Urine Ketones (Stick) Trace mg/dL (NEG) Urine Blood Negative (NEG) Urine Nitrite Negative (NEG) Urine Bilirubin Small (NEG) Urine Urobilinogen Dipstick 0.2 mg/dL (0.2 mg/dL) Urine Leukocyte Esterase Negative (NEG) Urine RBC 0 /HPF (0-2) Urine WBC 1-4 /HPF (0-4) Urine Squamous Epithelial Cells Mod /LPF Urine Bacteria Few /HPF (0-FEW) Urine Hyaline Casts Few /HPF Urine Mucus Mod /LPF Test 10/12/21 07:48 10/12/21 11:27 Glucose (Fingerstick) 93 mg/dL (70-99) 106 mg/dL (70-99) VTE Prophylaxis Ordered VTE Prophylaxis Devices: No VTE Pharmacological Prophylaxi: Yes Assessment/Plan Assessment/Plan acute diastolic CHF atrial fib with RVR, cardizem gtt, transition to PO morbid obesity, BMI 46 Dm2 htn, hold meds, hypotensive current depression anxiety, stable peripheral neuropathy admit tele, CV unit Justifications for Admission Other Justification DAGMAR CORADO MD Oct 12, 2021 12:22
--- NOTE | 2021-10-12 14:08 | PDOC2 ---
CONSULT Date of Consult Date of Consult DATE: 10/12/21 TIME: 14:02 Reason for Consult Reason for Consult: Atrial fibrillation. Referring Physician Referring Physician: Dr. Walden Identification/Chief Complaint Chief Complaint The patient is a 76-year-old female who was admitted with episodes of nausea and vomiting, mild right-sided chest pain and apparent new onset of atrial fibrillation. 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 An abdominal ultrasound showed no acute changes. Lab testing includes a Deborah a troponin of 6 and an elevated BNP at 2070. Patient's rate has improved overnight and is now 104. She is also feeling mildly better. She denies any history of coronary disease, congestive heart failure or cardiac arrhythmias. She does have a history of hypertension, COPD and diabetes. Her chief complaint this morning is her back pain which she states is a chronic problem. Source Source: Chart review, Patient History of Present Illness Reason for Visit: As above under chief complaint. Past Medical History Cardiovascular: HTN Pulmonary: COPD GI: GERD Musculoskeletal: low back pain, Osteoarthritis Rheumatologic: No pertinent hx Endocrine: Diabetes Past Surgical History Past Surgical History: Cholecystectomy, Cataract Removal, Total knee replacement, Hysterectomy Family History Family History: Hypertension Social History Quit ALCOHOL: none Current Problem List Problem List Problems Medical Problems: (1) Nausea & vomiting Status: Acute (2) New onset atrial fibrillation Status: Acute Current Medications Current Medications Current Medications Sodium Chloride 1,000 ml @ 1,000 mls/hr 1X ONCE IV Last administered on 10/11/21at 19:59; Start 10/11/21 at 19:30; Stop 10/11/21 at 20:29; Status DC Ondansetron HCl (Zofran) 4 mg 1X ONCE IVP Last administered on 10/11/21at 19:58; Start 10/11/21 at 19:30; Stop 10/11/21 at 19:37; Status DC Iohexol (Omnipaque 350 Mg/ml) 80 ml 1X ONCE IV Last administered on 10/11/21at 21:22; Start 10/11/21 at 21:30; Stop 10/11/21 at 21:31; Status DC Info (CONTRAST GIVEN -- Rx MONITORING) 1 each PRN DAILY PRN MC SEE COMMENTS; Start 10/11/21 at 21:15; Stop 10/13/21 at 21:14 Diltiazem HCl (Cardizem Iv Push) 10 mg 1X ONCE IVP Last administered on 2at 21:59; Start 10/11/21 at 22:00; Stop 10/11/21 at 22:01; Status DC Diltiazem HCl 125 mg/Sodium Chloride 125 ml @ 5 mls/hr 1X ONCE IV ; Start 10/11/21 at 22:00; Stop 10/11/21 at 21:48; Status DC Diltiazem HCl 125 mg/Dextrose 125 ml @ 5 mls/hr 1X ONCE IV Last administered on 10/11/21at 22:00; Start 10/11/21 at 22:00; Stop 10/12/21 at 11:26; Status DC Ondansetron HCl (Zofran) 4 mg PRN Q8HRS PRN IVP NAUSEA/VOMITING 1ST CHOICE; Start 10/11/21 at 22:15; Stop 10/12/21 at 22:14 Fentanyl Citrate (Fentanyl 2ml Vial) 50 mcg PRN Q1HR PRN IVP SEVERE PAIN 7-10; Start 10/11/21 at 22:15; Stop 10/12/21 at 22:14 Acetaminophen (Tylenol) 650 mg PRN Q4HRS PRN PO FEVER > 100.3'F; Start 10/11/21 at 22:15; Stop 10/12/21 at 22:14 Diltiazem HCl 125 mg/Dextrose 125 ml @ 5 mls/hr CONT PRN PRN IV AFIB Last administered on 10/12/21at 04:26; Start 10/12/21 at 04:30; Stop 10/12/21 at 12:19; Status DC Bupropion HCl (Wellbutrin Sr) 150 mg BID PO Last administered on 10/12/21at 10:16; Start 10/12/21 at 11:00 Gabapentin (Neurontin) 300 mg TID PO Last administered on 10/12/21at 10:16; Start 10/12/21 at 12:00 Acetaminophen/ Hydrocodone Bitart (Lortab 7.5/325) 1 tab PRN Q6HRS PRN PO PAIN Last administered on 10/12/21at 12:11; Start 10/12/21 at 10:15 Levothyroxine Sodium (Synthroid) 100 mcg DAILY06 PO ; Start 10/12/21 at 11:00 Diltiazem HCl (Cardizem 24hr ) 240 mg DAILY PO Last administered on 10/12/21at 12:40; Start 10/12/21 at 12:30 Active Scripts Active Reported Metformin Hcl 1,000 Mg Tablet 1,000 Mg PO BIDWMEALS Metformin 1000mg tab, takes 1/2 to 2 tabs daily Calcium (Calcium Carbonate) 500 Mg Tab.chew 600 Mg PO DAILY Mary (Ursodiol) 250 Mg Tablet 300 Mg PO DAILY Levothyroxine Sodium 100 Mcg Tablet 1 Tab PO DAILY Hydrocodone-Apap 7.5-325 (Hydrocodone Bit/Acetaminophen) 1 Tab Tablet 1 Tab PO PRN Q6HRS PRN Gemtesa (Vibegron) 75 Mg Tablet 75 Mg PO DAILY Phentermine Hcl 37.5 Mg Capsule 1 Cap PO DAILYWBKFT Omeprazole 20 Mg Capsule.dr 1 Cap PO DAILY Hydrochlorothiazide Tablet (Hydrochlorothiazide) 25 Mg Tablet 1 Tab PO DAILY Gabapentin (Gabapentin) 300 Mg Capsule 300 Mg PO TID Daily Multiple Vitamin (Multivitamin) 1 Each Tablet 1 Each PO DAILY Wellbutrin Sr (Bupropion Hcl) 150 Mg Tablet.er 1 Tab PO BID Allergies Allergies: Coded Allergies: No Known Drug Allergies (Unverified , 08/18/17) ROS Respiratory: YES: Shortness of breath Cardiovascular: yes Chest Pain Gastrointestinal: Yes Nausea, Yes Abdominal Pain Physical Exam General: mild distress HEENT: Atraumatic Lungs: Other (Slightly decreased breath sounds) Heart: Other (Irregularly irregular) Abdomen: Normal bowel sounds Vitals VITALS Vital Signs Date Time Temp Pulse Resp B/P (MAP) Pulse Ox O2 Delivery O2 Flow Rate FiO2 10/12/21 12:40 80 97/56 10/12/21 11:00 98.1 18 Room Air 98.1 10/12/21 07:00 94 10/12/21 00:25 3.0 Labs Labs Laboratory Tests Test 10/11/21 19:09 10/11/21 20:08 10/11/21 20:36 10/12/21 04:00 White Blood Count 9.6 x10^3/uL (4.0-11.0) 7.7 x10^3/uL (4.0-11.0) Red Blood Count 4.34 x10^6/uL (3.50-5.40) 3.78 x10^6/uL (3.50-5.40) Hemoglobin 13.0 g/dL (12.0-15.5) 11.5 g/dL (12.0-15.5) Hematocrit 40.2 % (36.0-47.0) 35.4 % (36.0-47.0) Mean Corpuscular Volume 93 fL (79-100) 94 fL (79-100) Mean Corpuscular Hemoglobin 30 pg (25-35) 31 pg (25-35) Mean Corpuscular Hemoglobin Concent 32 g/dL (31-37) 33 g/dL (31-37) Red Cell Distribution Width 14.4 % (11.5-14.5) 14.0 % (11.5-14.5) Platelet Count 348 x10^3/uL (140-400) 279 x10^3/uL (140-400) Neutrophils (%) (Auto) 57 % (31-73) 58 % (31-73) Lymphocytes (%) (Auto) 32 % (24-48) 30 % (24-48) Monocytes (%) (Auto) 8 % (0-9) 10 % (0-9) Eosinophils (%) (Auto) 2 % (0-3) 2 % (0-3) Basophils (%) (Auto) 1 % (0-3) 0 % (0-3) Neutrophils # (Auto) 5.4 x10^3/uL (1.8-7.7) 4.4 x10^3/uL (1.8-7.7) Lymphocytes # (Auto) 3.1 x10^3/uL (1.0-4.8) 2.3 x10^3/uL (1.0-4.8) Monocytes # (Auto) 0.8 x10^3/uL (0.0-1.1) 0.8 x10^3/uL (0.0-1.1) Eosinophils # (Auto) 0.2 x10^3/uL (0.0-0.7) 0.1 x10^3/uL (0.0-0.7) Basophils # (Auto) 0.1 x10^3/uL (0.0-0.2) 0.0 x10^3/uL (0.0-0.2) Prothrombin Time 13.0 SEC (11.7-14.0) Prothromb Time International Ratio 1.0 (0.8-1.1) D-Dimer ([place]) 0.57 ug/mlFEU (0.00-0.50) Sodium Level 139 mmol/L (136-145) 141 mmol/L (136-145) Potassium Level 3.9 mmol/L (3.5-5.1) 3.6 mmol/L (3.5-5.1) Chloride Level 102 mmol/L (98-107) 105 mmol/L (98-107) Carbon Dioxide Level 28 mmol/L (21-32) 28 mmol/L (21-32) Anion Gap 9 (6-14) 8 (6-14) Blood Urea Nitrogen 15 mg/dL (7-20) 15 mg/dL (7-20) Creatinine 1.2 mg/dL (0.6-1.0) 1.1 mg/dL (0.6-1.0) Estimated GFR (Cockcroft-Gault) 43.9 48.6 BUN/Creatinine Ratio 13 (6-20) Glucose Level 105 mg/dL (70-99) 101 mg/dL (70-99) Lactic Acid Level 1.1 mmol/L (0.4-2.0) Calcium Level 9.5 mg/dL (8.5-10.1) 8.7 mg/dL (8.5-10.1) Phosphorus Level 2.9 mg/dL (2.6-4.7) Magnesium Level 1.8 mg/dL (1.8-2.4) Total Bilirubin 0.4 mg/dL (0.2-1.0) Aspartate Amino Transf (AST/SGOT) 12 U/L (15-37) Alanine Aminotransferase (ALT/SGPT) 17 U/L (14-59) Alkaline Phosphatase 76 U/L (46-116) Troponin I High Sensitivity 6 ng/L (4-50) MH-Ewf-I-Type Natriuretic Peptide 2070 pg/mL (0-124) Total Protein 8.1 g/dL (6.4-8.2) Albumin 3.0 g/dL (3.4-5.0) Albumin/Globulin Ratio 0.6 (1.0-1.7) Lipase 28 U/L (73-393) Influenza Type A Antigen Negative (NEGATIVE) Influenza Type B Antigen Negative (NEGATIVE) SARS-CoV-2 Antigen (Rapid) Negative (NEGATIVE) Urine Collection Type Unknown Urine Color Yellow Urine Clarity Clear Urine pH 5.5 (<5.0-8.0) Urine Specific [place] 1.025 (1.000-1.030) Urine Protein Negative mg/dL (NEG-TRACE) Urine Glucose (UA) Negative mg/dL (NEG) Urine Ketones (Stick) Trace mg/dL (NEG) Urine Blood Negative (NEG) Urine Nitrite Negative (NEG) Urine Bilirubin Small (NEG) Urine Urobilinogen Dipstick 0.2 mg/dL (0.2 mg/dL) Urine Leukocyte Esterase Negative (NEG) Urine RBC 0 /HPF (0-2) Urine WBC 1-4 /HPF (0-4) Urine Squamous Epithelial Cells Mod /LPF Urine Bacteria Few /HPF (0-FEW) Urine Hyaline Casts Few /HPF Urine Mucus Mod /LPF Test 10/12/21 07:48 10/12/21 11:27 Glucose (Fingerstick) 93 mg/dL (70-99) 106 mg/dL (70-99) Laboratory Tests Test 10/11/21 19:09 10/11/21 20:08 10/11/21 20:36 10/12/21 04:00 White Blood Count 9.6 x10^3/uL (4.0-11.0) 7.7 x10^3/uL (4.0-11.0) Red Blood Count 4.34 x10^6/uL (3.50-5.40) 3.78 x10^6/uL (3.50-5.40) Hemoglobin 13.0 g/dL (12.0-15.5) 11.5 g/dL (12.0-15.5) Hematocrit 40.2 % (36.0-47.0) 35.4 % (36.0-47.0) Mean Corpuscular Volume 93 fL (79-100) 94 fL (79-100) Mean Corpuscular Hemoglobin 30 pg (25-35) 31 pg (25-35) Mean Corpuscular Hemoglobin Concent 32 g/dL (31-37) 33 g/dL (31-37) Red Cell Distribution Width 14.4 % (11.5-14.5) 14.0 % (11.5-14.5) Platelet Count 348 x10^3/uL (140-400) 279 x10^3/uL (140-400) Neutrophils (%) (Auto) 57 % (31-73) 58 % (31-73) Lymphocytes (%) (Auto) 32 % (24-48) 30 % (24-48) Monocytes (%) (Auto) 8 % (0-9) 10 % (0-9) Eosinophils (%) (Auto) 2 % (0-3) 2 % (0-3) Basophils (%) (Auto) 1 % (0-3) 0 % (0-3) Neutrophils # (Auto) 5.4 x10^3/uL (1.8-7.7) 4.4 x10^3/uL (1.8-7.7) Lymphocytes # (Auto) 3.1 x10^3/uL (1.0-4.8) 2.3 x10^3/uL (1.0-4.8) Monocytes # (Auto) 0.8 x10^3/uL (0.0-1.1) 0.8 x10^3/uL (0.0-1.1) Eosinophils # (Auto) 0.2 x10^3/uL (0.0-0.7) 0.1 x10^3/uL (0.0-0.7) Basophils # (Auto) 0.1 x10^3/uL (0.0-0.2) 0.0 x10^3/uL (0.0-0.2) Prothrombin Time 13.0 SEC (11.7-14.0) Prothromb Time International Ratio 1.0 (0.8-1.1) D-Dimer ([place]) 0.57 ug/mlFEU (0.00-0.50) Sodium Level 139 mmol/L (136-145) 141 mmol/L (136-145) Potassium Level 3.9 mmol/L (3.5-5.1) 3.6 mmol/L (3.5-5.1) Chloride Level 102 mmol/L (98-107) 105 mmol/L (98-107) Carbon Dioxide Level 28 mmol/L (21-32) 28 mmol/L (21-32) Anion Gap 9 (6-14) 8 (6-14) Blood Urea Nitrogen 15 mg/dL (7-20) 15 mg/dL (7-20) Creatinine 1.2 mg/dL (0.6-1.0) 1.1 mg/dL (0.6-1.0) Estimated GFR (Cockcroft-Gault) 43.9 48.6 BUN/Creatinine Ratio 13 (6-20) Glucose Level 105 mg/dL (70-99) 101 mg/dL (70-99) Lactic Acid Level 1.1 mmol/L (0.4-2.0) Calcium Level 9.5 mg/dL (8.5-10.1) 8.7 mg/dL (8.5-10.1) Phosphorus Level 2.9 mg/dL (2.6-4.7) Magnesium Level 1.8 mg/dL (1.8-2.4) Total Bilirubin 0.4 mg/dL (0.2-1.0) Aspartate Amino Transf (AST/SGOT) 12 U/L (15-37) Alanine Aminotransferase (ALT/SGPT) 17 U/L (14-59) Alkaline Phosphatase 76 U/L (46-116) Troponin I High Sensitivity 6 ng/L (4-50) WF-Nhh-K-Type Natriuretic Peptide 2070 pg/mL (0-124) Total Protein 8.1 g/dL (6.4-8.2) Albumin 3.0 g/dL (3.4-5.0) Albumin/Globulin Ratio 0.6 (1.0-1.7) Lipase 28 U/L (73-393) Influenza Type A Antigen Negative (NEGATIVE) Influenza Type B Antigen Negative (NEGATIVE) SARS-CoV-2 Antigen (Rapid) Negative (NEGATIVE) Urine Collection Type Unknown Urine Color Yellow Urine Clarity Clear Urine pH 5.5 (<5.0-8.0) Urine Specific [place] 1.025 (1.000-1.030) Urine Protein Negative mg/dL (NEG-TRACE) Urine Glucose (UA) Negative mg/dL (NEG) Urine Ketones (Stick) Trace mg/dL (NEG) Urine Blood Negative (NEG) Urine Nitrite Negative (NEG) Urine Bilirubin Small (NEG) Urine Urobilinogen Dipstick 0.2 mg/dL (0.2 mg/dL) Urine Leukocyte Esterase Negative (NEG) Urine RBC 0 /HPF (0-2) Urine WBC 1-4 /HPF (0-4) Urine Squamous Epithelial Cells Mod /LPF Urine Bacteria Few /HPF (0-FEW) Urine Hyaline Casts Few /HPF Urine Mucus Mod /LPF Test 10/12/21 07:48 10/12/21 11:27 Glucose (Fingerstick) 93 mg/dL (70-99) 106 mg/dL (70-99) Images Images Imaging as above. Assessment/Plan Assessment/Plan 1. Atrial fibrillation. Apparently new onset. Rate is controlled on her present medications. We will continue present medications and increase activity as tolerated. We will check an echocardiogram. Will start anticoagulation. 2. Nausea and vomiting. Significantly improved. Testing as above. 3. Possible diastolic heart failure. Continue present treatments. Echocardiogram as above. 4. History of hypertension. We will continue to monitor. 5. Diabetes mellitus. As per the primary service. DAMARIS SIMON MD Oct 12, 2021 14:08
[2021-10-12] MEDS: APIXABAN 5 MG TABLET. PO SCH ×2 (14:28→20:29)
[2021-10-13 03:00] VITALS: BP 122/63
[2021-10-13] MEDS: LEVOTHYROXINE 100 MCG TABLET PO SCH (05:46)
[2021-10-13 07:00] VITALS: BP 103/57
[2021-10-13] MEDS: buPROPion SR 150 MG TABLET.SA PO SCH (08:22)
[2021-10-13] MEDS: APIXABAN 5 MG TABLET. PO SCH (08:24)
[2021-10-13] MEDS: GABAPENTIN 300 MG CAPSULE. PO SCH ×2 (08:24→13:31)
[2021-10-13 11:00] VITALS: BP 105/48
--- NOTE | 2021-10-13 13:25 | PDOC ---
PROGRESS NOTES Date of Service DATE: 10/13/21 TIME: 13:23 Subjective Subjective Patient seen and examined Objective Objective Vital Signs Date Time Temp Pulse Resp B/P (MAP) Pulse Ox O2 Delivery O2 Flow Rate FiO2 10/13/21 11:00 95 18 105/48 (67) 99 Room Air 10/13/21 08:00 3.0 10/13/21 07:00 98.0 98.0 Intake and Output 10/13/21 07:00 Intake Total 660 ml Output Total 150 ml Balance 510 ml Intake Oral 660 ml Output Urine Total 150 ml # Voids 3 # Bowel Movements 1 Physical Exam Abdomen: Normal bowel sounds Heart: Other (Irregularly irregular rate of 90) General: No acute distress Lungs: Other (Minimally decreased breath sounds) Assessment Assessment Problems Medical Problems: (1) Nausea & vomiting Status: Acute (2) New onset atrial fibrillation Status: Acute 1. Atrial fibrillation. Apparently new onset. Rate is controlled on her present medications. We will continue present medications and increase activity as tolerated. Echo pending. On anticoagulation. 2. Nausea and vomiting. Significantly improved. Testing as above. 3. Possible diastolic heart failure. Continue present treatments. Echocardiogram pending. 4. History of hypertension. We will continue to monitor. 5. Diabetes mellitus. As per the primary service. Comment Review of Relevant I have reviewed the following items michelle (where applicable) has been applied. Labs Laboratory Tests Test 10/11/21 19:09 10/11/21 20:08 10/11/21 20:36 10/12/21 04:00 White Blood Count 9.6 x10^3/uL (4.0-11.0) 7.7 x10^3/uL (4.0-11.0) Red Blood Count 4.34 x10^6/uL (3.50-5.40) 3.78 x10^6/uL (3.50-5.40) Hemoglobin 13.0 g/dL (12.0-15.5) 11.5 g/dL (12.0-15.5) Hematocrit 40.2 % (36.0-47.0) 35.4 % (36.0-47.0) Mean Corpuscular Volume 93 fL (79-100) 94 fL (79-100) Mean Corpuscular Hemoglobin 30 pg (25-35) 31 pg (25-35) Mean Corpuscular Hemoglobin Concent 32 g/dL (31-37) 33 g/dL (31-37) Red Cell Distribution Width 14.4 % (11.5-14.5) 14.0 % (11.5-14.5) Platelet Count 348 x10^3/uL (140-400) 279 x10^3/uL (140-400) Neutrophils (%) (Auto) 57 % (31-73) 58 % (31-73) Lymphocytes (%) (Auto) 32 % (24-48) 30 % (24-48) Monocytes (%) (Auto) 8 % (0-9) 10 % (0-9) Eosinophils (%) (Auto) 2 % (0-3) 2 % (0-3) Basophils (%) (Auto) 1 % (0-3) 0 % (0-3) Neutrophils # (Auto) 5.4 x10^3/uL (1.8-7.7) 4.4 x10^3/uL (1.8-7.7) Lymphocytes # (Auto) 3.1 x10^3/uL (1.0-4.8) 2.3 x10^3/uL (1.0-4.8) Monocytes # (Auto) 0.8 x10^3/uL (0.0-1.1) 0.8 x10^3/uL (0.0-1.1) Eosinophils # (Auto) 0.2 x10^3/uL (0.0-0.7) 0.1 x10^3/uL (0.0-0.7) Basophils # (Auto) 0.1 x10^3/uL (0.0-0.2) 0.0 x10^3/uL (0.0-0.2) Prothrombin Time 13.0 SEC (11.7-14.0) Prothromb Time International Ratio 1.0 (0.8-1.1) D-Dimer ([place]) 0.57 ug/mlFEU (0.00-0.50) Sodium Level 139 mmol/L (136-145) 141 mmol/L (136-145) Potassium Level 3.9 mmol/L (3.5-5.1) 3.6 mmol/L (3.5-5.1) Chloride Level 102 mmol/L (98-107) 105 mmol/L (98-107) Carbon Dioxide Level 28 mmol/L (21-32) 28 mmol/L (21-32) Anion Gap 9 (6-14) 8 (6-14) Blood Urea Nitrogen 15 mg/dL (7-20) 15 mg/dL (7-20) Creatinine 1.2 mg/dL (0.6-1.0) 1.1 mg/dL (0.6-1.0) Estimated GFR (Cockcroft-Gault) 43.9 48.6 BUN/Creatinine Ratio 13 (6-20) Glucose Level 105 mg/dL (70-99) 101 mg/dL (70-99) Lactic Acid Level 1.1 mmol/L (0.4-2.0) Calcium Level 9.5 mg/dL (8.5-10.1) 8.7 mg/dL (8.5-10.1) Phosphorus Level 2.9 mg/dL (2.6-4.7) Magnesium Level 1.8 mg/dL (1.8-2.4) Total Bilirubin 0.4 mg/dL (0.2-1.0) Aspartate Amino Transf (AST/SGOT) 12 U/L (15-37) Alanine Aminotransferase (ALT/SGPT) 17 U/L (14-59) Alkaline Phosphatase 76 U/L (46-116) Troponin I High Sensitivity 6 ng/L (4-50) SQ-Mcb-Y-Type Natriuretic Peptide 2070 pg/mL (0-124) Total Protein 8.1 g/dL (6.4-8.2) Albumin 3.0 g/dL (3.4-5.0) Albumin/Globulin Ratio 0.6 (1.0-1.7) Lipase 28 U/L (73-393) Coronavirus (COVID-19)(PCR) Positive (NOT DETECTD) Influenza Type A Antigen Negative (NEGATIVE) Influenza Type B Antigen Negative (NEGATIVE) SARS-CoV-2 Antigen (Rapid) Negative (NEGATIVE) Urine Collection Type Unknown Urine Color Yellow Urine Clarity Clear Urine pH 5.5 (<5.0-8.0) Urine Specific [place] 1.025 (1.000-1.030) Urine Protein Negative mg/dL (NEG-TRACE) Urine Glucose (UA) Negative mg/dL (NEG) Urine Ketones (Stick) Trace mg/dL (NEG) Urine Blood Negative (NEG) Urine Nitrite Negative (NEG) Urine Bilirubin Small (NEG) Urine Urobilinogen Dipstick 0.2 mg/dL (0.2 mg/dL) Urine Leukocyte Esterase Negative (NEG) Urine RBC 0 /HPF (0-2) Urine WBC 1-4 /HPF (0-4) Urine Squamous Epithelial Cells Mod /LPF Urine Bacteria Few /HPF (0-FEW) Urine Hyaline Casts Few /HPF Urine Mucus Mod /LPF Test 10/12/21 07:48 10/12/21 11:27 10/12/21 17:22 10/12/21 19:56 Glucose (Fingerstick) 93 mg/dL (70-99) 106 mg/dL (70-99) 79 mg/dL (70-99) 135 mg/dL (70-99) Test 10/13/21 07:38 10/13/21 11:49 Glucose (Fingerstick) 85 mg/dL (70-99) 104 mg/dL (70-99) Laboratory Tests Test 10/12/21 17:22 10/12/21 19:56 10/13/21 07:38 10/13/21 11:49 Glucose (Fingerstick) 79 mg/dL (70-99) 135 mg/dL (70-99) 85 mg/dL (70-99) 104 mg/dL (70-99) Microbiology 10/11/21 Blood Culture - Preliminary, Resulted NO GROWTH AFTER 1 DAY Medications Current Medications Sodium Chloride 1,000 ml @ 1,000 mls/hr 1X ONCE IV Last administered on 10/11/21at 19:59; Start 10/11/21 at 19:30; Stop 10/11/21 at 20:29; Status DC Ondansetron HCl (Zofran) 4 mg 1X ONCE IVP Last administered on 10/11/21at 19:58; Start 10/11/21 at 19:30; Stop 10/11/21 at 19:37; Status DC Iohexol (Omnipaque 350 Mg/ml) 80 ml 1X ONCE IV Last administered on 10/11/21at 21:22; Start 10/11/21 at 21:30; Stop 10/11/21 at 21:31; Status DC Info (CONTRAST GIVEN -- Rx MONITORING) 1 each PRN DAILY PRN MC SEE COMMENTS; Start 10/11/21 at 21:15; Stop 10/13/21 at 21:14 Diltiazem HCl (Cardizem Iv Push) 10 mg 1X ONCE IVP Last administered on 10/11/21at 21:59; Start 10/11/21 at 22:00; Stop 10/11/21 at 22:01; Status DC Diltiazem HCl 125 mg/Sodium Chloride 125 ml @ 5 mls/hr 1X ONCE IV ; Start 10/11/21 at 22:00; Stop 10/11/21 at 21:48; Status DC Diltiazem HCl 125 mg/Dextrose 125 ml @ 5 mls/hr 1X ONCE IV Last administered on 10/11/21at 22:00; Start 10/11/21 at 22:00; Stop 10/12/21 at 11:26; Status DC Ondansetron HCl (Zofran) 4 mg PRN Q8HRS PRN IVP NAUSEA/VOMITING 1ST CHOICE; Start 10/11/21 at 22:15; Stop 10/12/21 at 22:14; Status DC Fentanyl Citrate (Fentanyl 2ml Vial) 50 mcg PRN Q1HR PRN IVP SEVERE PAIN 7-10; Start 10/11/21 at 22:15; Stop 10/12/21 at 22:14; Status DC Acetaminophen (Tylenol) 650 mg PRN Q4HRS PRN PO FEVER > 100.3'F; Start 10/11/21 at 22:15; Stop 10/12/21 at 22:14; Status DC Diltiazem HCl 125 mg/Dextrose 125 ml @ 5 mls/hr CONT PRN PRN IV AFIB Last administered on 10/12/21at 04:26; Start 10/12/21 at 04:30; Stop 10/12/21 at 12:19; Status DC Bupropion HCl (Wellbutrin Sr) 150 mg BID PO Last administered on 10/13/21at 08:22; Start 10/12/21 at 11:00 Gabapentin (Neurontin) 300 mg TID PO Last administered on 10/13/21at 08:24; Start 10/12/21 at 12:00 Acetaminophen/ Hydrocodone Bitart (Lortab 7.5/325) 1 tab PRN Q6HRS PRN PO PAIN Last administered on 10/12/21at 21:08; Start 10/12/21 at 10:15 Levothyroxine Sodium (Synthroid) 100 mcg DAILY06 PO Last administered on 10/13/21at 05:46; Start 10/12/21 at 11:00 Diltiazem HCl (Cardizem 24hr Cd) 240 mg DAILY PO Last administered on 10/13/21at 08:24; Start 10/12/21 at 12:30 Apixaban (Eliquis) 5 mg BID PO Last administered on 10/13/21at 08:24; Start 10/12/21 at 14:30 Active Scripts Active Reported Metformin Hcl 1,000 Mg Tablet 1,000 Mg PO BIDWMEALS Metformin 1000mg tab, takes 1/2 to 2 tabs daily Calcium (Calcium Carbonate) 500 Mg Tab.chew 600 Mg PO DAILY Mary (Ursodiol) 250 Mg Tablet 300 Mg PO DAILY Levothyroxine Sodium 100 Mcg Tablet 1 Tab PO DAILY Hydrocodone-Apap 7.5-325 (Hydrocodone Bit/Acetaminophen) 1 Tab Tablet 1 Tab PO PRN Q6HRS PRN Gemtesa (Vibegron) 75 Mg Tablet 75 Mg PO DAILY Phentermine Hcl 37.5 Mg Capsule 1 Cap PO DAILYWBKFT Omeprazole 20 Mg Capsule.dr 1 Cap PO DAILY Hydrochlorothiazide Tablet (Hydrochlorothiazide) 25 Mg Tablet 1 Tab PO DAILY Gabapentin (Gabapentin) 300 Mg Capsule 300 Mg PO TID Daily Multiple Vitamin (Multivitamin) 1 Each Tablet 1 Each PO DAILY Wellbutrin Sr (Bupropion Hcl) 150 Mg Tablet.er 1 Tab PO BID Vitals/I & O Vital Sign - Last 24 Hours 10/12/21 10/12/21 10/12/21 10/12/21 15:00 19:00 19:41 21:08 Temp 97.4 97.9 97.4 97.9 Pulse 92 83 Resp 18 18 B/P (MAP) 119/76 (90) 117/58 (77) Pulse Ox 96 94 O2 Delivery Room Air Room Air Room Air Room Air 10/12/21 10/13/21 10/13/21 10/13/21 23:00 03:00 07:00 08:00 Temp 98.5 98.0 98.0 98.5 98.0 98.0 Pulse 93 90 90 Resp 20 21 18 B/P (MAP) 101/90 (94) 122/63 (82) 103/57 (72) Pulse Ox 95 96 93 O2 Delivery Room Air Room Air Room Air Room Air O2 Flow Rate 3.0 10/13/21 10/13/21 08:24 11:00 Pulse 90 95 Resp 18 B/P (MAP) 103/57 105/48 (67) Pulse Ox 99 O2 Delivery Room Air Intake and Output 10/12/21 10/12/21 10/13/21 15:00 23:00 07:00 Intake Total 660 ml Output Total 150 ml Balance 510 ml Justifications for Admission Other Justification DAMARIS SIMON MD Oct 13, 2021 13:25
[2021-10-13] MEDS ORDERED: APIX5TAB PO (13:40)
[2021-10-13] MEDS ORDERED: DILT240C33 PO (13:40)
--- NOTE | 2021-10-13 13:43 | PDOC3 ---
Discharge Summary Visit Information Date of Admission: Oct 11, 2021 Date of Discharge: Oct 13, 2021 Final Diagnosis chest pain, acute diastolic CHF atrial fib with RVR, cardizem gtt, morbid obesity, BMI 47 Dm2 htn, depression anxiety, stable peripheral neuropathy COVID 19 test postive, PCR pos on this hospital stay Problems Medical Problems: (1) Nausea & vomiting Status: Acute (2) New onset atrial fibrillation Status: Acute Brief Hospital Course Allergies Allergies Coded Allergies Type Severity Reaction Last Updated Verified No Known Drug Allergies 08/18/17 No Vital Signs Vital Signs Date Time Temp Pulse Resp B/P (MAP) Pulse Ox O2 Delivery O2 Flow Rate FiO2 10/13/21 11:00 95 18 105/48 (67) 99 Room Air 10/13/21 08:00 3.0 10/13/21 07:00 98.0 98.0 Lab Results Laboratory Tests Test 10/11/21 19:09 10/11/21 20:08 10/11/21 20:36 10/12/21 04:00 White Blood Count 9.6 x10^3/uL (4.0-11.0) 7.7 x10^3/uL (4.0-11.0) Red Blood Count 4.34 x10^6/uL (3.50-5.40) 3.78 x10^6/uL (3.50-5.40) Hemoglobin 13.0 g/dL (12.0-15.5) 11.5 g/dL (12.0-15.5) Hematocrit 40.2 % (36.0-47.0) 35.4 % (36.0-47.0) Mean Corpuscular Volume 93 fL (79-100) 94 fL (79-100) Mean Corpuscular Hemoglobin 30 pg (25-35) 31 pg (25-35) Mean Corpuscular Hemoglobin Concent 32 g/dL (31-37) 33 g/dL (31-37) Red Cell Distribution Width 14.4 % (11.5-14.5) 14.0 % (11.5-14.5) Platelet Count 348 x10^3/uL (140-400) 279 x10^3/uL (140-400) Neutrophils (%) (Auto) 57 % (31-73) 58 % (31-73) Lymphocytes (%) (Auto) 32 % (24-48) 30 % (24-48) Monocytes (%) (Auto) 8 % (0-9) 10 % (0-9) Eosinophils (%) (Auto) 2 % (0-3) 2 % (0-3) Basophils (%) (Auto) 1 % (0-3) 0 % (0-3) Neutrophils # (Auto) 5.4 x10^3/uL (1.8-7.7) 4.4 x10^3/uL (1.8-7.7) Lymphocytes # (Auto) 3.1 x10^3/uL (1.0-4.8) 2.3 x10^3/uL (1.0-4.8) Monocytes # (Auto) 0.8 x10^3/uL (0.0-1.1) 0.8 x10^3/uL (0.0-1.1) Eosinophils # (Auto) 0.2 x10^3/uL (0.0-0.7) 0.1 x10^3/uL (0.0-0.7) Basophils # (Auto) 0.1 x10^3/uL (0.0-0.2) 0.0 x10^3/uL (0.0-0.2) Prothrombin Time 13.0 SEC (11.7-14.0) Prothromb Time International Ratio 1.0 (0.8-1.1) D-Dimer ([place]) 0.57 ug/mlFEU (0.00-0.50) Sodium Level 139 mmol/L (136-145) 141 mmol/L (136-145) Potassium Level 3.9 mmol/L (3.5-5.1) 3.6 mmol/L (3.5-5.1) Chloride Level 102 mmol/L (98-107) 105 mmol/L (98-107) Carbon Dioxide Level 28 mmol/L (21-32) 28 mmol/L (21-32) Anion Gap 9 (6-14) 8 (6-14) Blood Urea Nitrogen 15 mg/dL (7-20) 15 mg/dL (7-20) Creatinine 1.2 mg/dL (0.6-1.0) 1.1 mg/dL (0.6-1.0) Estimated GFR (Cockcroft-Gault) 43.9 48.6 BUN/Creatinine Ratio 13 (6-20) Glucose Level 105 mg/dL (70-99) 101 mg/dL (70-99) Lactic Acid Level 1.1 mmol/L (0.4-2.0) Calcium Level 9.5 mg/dL (8.5-10.1) 8.7 mg/dL (8.5-10.1) Phosphorus Level 2.9 mg/dL (2.6-4.7) Magnesium Level 1.8 mg/dL (1.8-2.4) Total Bilirubin 0.4 mg/dL (0.2-1.0) Aspartate Amino Transf (AST/SGOT) 12 U/L (15-37) Alanine Aminotransferase (ALT/SGPT) 17 U/L (14-59) Alkaline Phosphatase 76 U/L (46-116) Troponin I High Sensitivity 6 ng/L (4-50) RB-Fdp-K-Type Natriuretic Peptide 2070 pg/mL (0-124) Total Protein 8.1 g/dL (6.4-8.2) Albumin 3.0 g/dL (3.4-5.0) Albumin/Globulin Ratio 0.6 (1.0-1.7) Lipase 28 U/L (73-393) Coronavirus (COVID-19)(PCR) Positive (NOT DETECTD) Influenza Type A Antigen Negative (NEGATIVE) Influenza Type B Antigen Negative (NEGATIVE) SARS-CoV-2 Antigen (Rapid) Negative (NEGATIVE) Urine Collection Type Unknown Urine Color Yellow Urine Clarity Clear Urine pH 5.5 (<5.0-8.0) Urine Specific [place] 1.025 (1.000-1.030) Urine Protein Negative mg/dL (NEG-TRACE) Urine Glucose (UA) Negative mg/dL (NEG) Urine Ketones (Stick) Trace mg/dL (NEG) Urine Blood Negative (NEG) Urine Nitrite Negative (NEG) Urine Bilirubin Small (NEG) Urine Urobilinogen Dipstick 0.2 mg/dL (0.2 mg/dL) Urine Leukocyte Esterase Negative (NEG) Urine RBC 0 /HPF (0-2) Urine WBC 1-4 /HPF (0-4) Urine Squamous Epithelial Cells Mod /LPF Urine Bacteria Few /HPF (0-FEW) Urine Hyaline Casts Few /HPF Urine Mucus Mod /LPF Test 10/12/21 07:48 10/12/21 11:27 10/12/21 17:22 10/12/21 19:56 Glucose (Fingerstick) 93 mg/dL (70-99) 106 mg/dL (70-99) 79 mg/dL (70-99) 135 mg/dL (70-99) Test 10/13/21 07:38 10/13/21 11:49 Glucose (Fingerstick) 85 mg/dL (70-99) 104 mg/dL (70-99) Laboratory Tests Test 10/12/21 17:22 10/12/21 19:56 10/13/21 07:38 10/13/21 11:49 Glucose (Fingerstick) 79 mg/dL (70-99) 135 mg/dL (70-99) 85 mg/dL (70-99) 104 mg/dL (70-99) Brief Hospital Course Ms. Ca is a 76 year old female admit from ER with acute right-sided chest pain. she thought pleurisy because the pain went ot her back, no palpitations, soem shortnes of breath. She was nauseated and vomited last night Pain 01/10, She had recent COVID, was vaccinated and has been weak since, covid PCR was again pos here, admti for A. fib with RVR, no prior history, feels better on cardizem gtt this AM Discharge Information Condition at Discharge: Improved Follow Up: Weeks Disposition/Orders: D/C to Home Scheduled Apixaban (Eliquis) 5 Mg Tablet, 5 MG PO BID for atrial fib, #60 Prescribed by: DAGMAR CORADO on 10/13/21 1340 Bupropion Hcl (Wellbutrin Sr) 150 Mg Tablet.er, 1 TAB PO BID, #60 Ref 5 (Rep orted) Entered as Reported by: JONI BOND on 08/18/17 1721 Last Taken: Unknown Dose on 10/11/21 0800 Last Action: Continued on 10/12/21 1006 by DAGMAR CORADO Calcium Carbonate (Calcium) 500 Mg Tab.chew, 600 MG PO DAILY for Supplement, (Reported) Entered as Reported by: LOC BARTON on 10/12/21 0516 Last Taken: Unknown Dose on 10/11/21 0800 Last Action: New Order on 10/12/21515 by LOC BARTON Diltiazem HCl (Diltiazem 24Hr Cd) 240 Mg Cap.er.24h, 240 MG PO DAILY for atiral fib, #30 Ref 1 Prescribed by: DAGMAR CORADO on 10/13/21 1340 Gabapentin (Gabapentin ) 300 Mg Capsule, 300 MG PO TID, (Reported) Entered as Reported by: JONI BOND on 08/18/171720 Last Taken: Unknown Dose on 10/11/211999 Last Action: Continued on 10/12/211005 by DAGMAR CORADO Hydrochlorothiazide (Hydrochlorothiazide Tablet ) 25 Mg Tablet, 1 TAB PO DAILY, #30 Ref 5 (Reported) Entered as Reported by: JONI BOND on 08/18/171720 Last Taken: Unknown Dose on 10/11/21 08 Last Action: HELD on 10/12/211005 by DAGMAR CORADO Levothyroxine Sodium (Levothyroxine Sodium) 100 Mcg Tablet, 1 TAB PO DAILY for hypothyroidism, #30 Ref 5 (Reported) Entered as Reported by: LOC BARTON on 10/12/21515 Last Taken: Unknown Dose on 10/11/21 0700 Last Action: Continued on 10/12/211005 by DAGMAR CORADO Metformin Hcl (Metformin Hcl) 1,000 Mg Tablet, 1,000 MG PO BIDWMEALS for DM, (Reported) Metformin 1000mg tab, takes 1/2 to 2 tabs daily Entered as Reported by: GLORIA TINOCO on 10/12/21519 Last Action: New Order on 10/12/21519 by GLORIA TINOCO Multivitamin (Daily Multiple Vitamin) 1 Each Tablet, 1 EACH PO DAILY, (Reported) Entered as Reported by: JONI BOND on 08/18/171720 Last Taken: Unknown Dose on 10/11/21 08 Last Action: Last Taken Edited on 10/12/21442 by LOC BARTON Omeprazole (Omeprazole) 20 Mg Capsule.dr, 1 CAP PO DAILY, #30 Ref 5 (Reported) Entered as Reported by: JONI BOND on 08/18/171720 Last Taken: Unknown Dose on 10/11/21 08 Last Action: Last Taken Edited on 10/12/21442 by LOC BARTON Phentermine Hcl (Phentermine Hcl) 37.5 Mg Capsule, 1 CAP PO DAILYWBKFT, #30 Ref 2 (Reported) Entered as Reported by: JONI BOND on 08/18/171721 Ursodiol (Mary) 250 Mg Tablet, 300 MG PO DAILY for gallstones, (Reported) Entered as Reported by: LOC BARTON on 10/12/21515 Last Taken: Unknown Dose on 10/11/21799 Last Action: New Order on 10/12/21515 by LOC BARTON Vibegron (Gemtesa) 75 Mg Tablet, 75 MG PO DAILY for overactive bladder, (Reported) Entered as Reported by: LOC BARTON on 10/12/21515 Last Taken: Unknown Dose on 10/11/21799 Last Action: New Order on 10/12/21515 by LOC BARTON Scheduled PRN Hydrocodone Bit/Acetaminophen (Hydrocodone-Apap 7.5-325 ) 1 Tab Tablet, 1 TAB PO PRN Q6HRS PRN for PAIN, Ref 0 (Reported) Entered as Reported by: LOC BARTON on 10/12/21515 Last Taken: Unknown Dose on 10/11/211999 Last Action: Continued on 10/12/211005 by DAGMAR CORADO Patient Instructions Patient Instructions face to facemask eval done COVID patient 33 min dc plan Justicifation of Admission Dx: Justifications for Admission: Justification of Admission Dx: Yes DAGMAR CORADO MD Oct 13, 2021 13:42
[2021-10-13] MEDS: HYDROcodone/APAP 7.5/325MG 1 TAB TABLET PO PRN (14:32)
--- NOTE | 2021-10-13 16:38 | CARD ---
MR#: [id number] Date of Study: 10/13/2021 Ordering Physician: DAMARIS MUNIZ, Referring Physician: DAMARIS MUNIZ, Kelley: Erick Robison [facility] APPROVED REPORT EXAM: Two-dimensional and M-mode echocardiogram with Doppler and color Doppler. Other Information Quality : AverageHR: 88bpm Rhythm : NSR INDICATION Atrial Fibrillation RISK FACTORS Hypertension Diabetes COPD 2D DIMENSIONS RVDd4.8 (2.9-3.5cm)Left Atrium(2D)4.2 (1.6-4.0cm) IVSd1.1 (0.7-1.1cm)Aortic Root(2D)3.3 (2.0-3.7cm) LVDd4.8 (3.9-5.9cm)LVOT Diameter2.2 (1.8-2.4cm) PWd1.1 (0.7-1.1cm)LA Smywgi91 (18-58mL) LVDs2.5 (2.5-4.0cm)FS (%) 48.1 % SV87.0 ml Aortic Valve AoV Peak Larry.115.4cm/sAoV VTI21.1cm AO Peak GR.5.3mmHgLVOT Peak Larry.89.6cm/s AO Mean GR.3mmHgAVA (VMAX)2.90cm2 Mitral Valve MV E Peak Gr.8mmHgMV E Mean Gr.3mmHg Pulmonary Valve PV Peak Sitkdtpa59.8cm/s Tricuspid Valve TR P. Yviqrvxf597ug/sTR Peak Gr.22mmHg LEFT VENTRICLE The left ventricle is normal size. There is normal left ventricular wall thickness. The left ventricu lar systolic function is normal and the ejection fraction is within normal range. LV ejection fractio n of 55 to 60%. There is normal LV segmental wall motion. No left ventricle thrombus noted on this st udy. There is no ventricular septal defect visualized. There is no left ventricular aneurysm. There i s no mass noted in the left ventricle. RIGHT VENTRICLE The right ventricle is normal size. There is normal right ventricular wall thickness. The right ventr icular systolic function is normal. ATRIA The left atrium is mildly dilated. The right atrium is borderline dilated. The interatrial septum is intact with no evidence for an atrial septal defect or patent foramen ovale as noted on 2-D or Dopple r imaging. AORTIC VALVE The aortic valve is normal in structure and function. Doppler and Color Flow revealed no significant aortic regurgitation. There is no significant aortic valvular stenosis. There is no aortic valvular v egetation. MITRAL VALVE The mitral valve is normal in structure and function. There is no evidence of mitral valve prolapse. There is no mitral valve stenosis. Doppler and Color-flow revealed trace to mild mitral regurgitation . TRICUSPID VALVE The tricuspid valve is normal in structure and function. Doppler and Color Flow revealed trace to mil d tricuspid regurgitation. There is no tricuspid valve prolapse or vegetation. There is no tricuspid valve stenosis. PULMONIC VALVE The pulmonary valve is normal in structure and function. Doppler and Color Flow revealed no pulmonic valvular regurgitation. There is no pulmonic valvular stenosis. GREAT VESSELS The aortic root is normal in size. The ascending aorta is normal in size. The pulmonary artery is nor mal. The IVC is normal in size and collapses >50% with inspiration. PERICARDIAL EFFUSION There is no pleural effusion. There is no evidence of significant pericardial effusion. Critical Notification Critical Value: No <Conclusion> The left ventricle is normal size. The left ventricular systolic function is normal and the ejection fraction is within normal range. LV ejection fraction of 55 to 60%. There is normal LV segmental wall motion. Doppler and Color Flow revealed no significant aortic regurgitation. There is no significant aortic valvular stenosis. Doppler and Color-flow revealed trace to mild mitral regurgitation. Doppler and Color Flow revealed trace to mild tricuspid regurgitation. Signed by : Damaris Muniz MD Electronically Approved : 10/13/2021 16:38:10
[2021-10-13] MEDS ORDERED: HYDR-2765 PO (16:51)
== END 2021-10-13 14:41 | disposition home or self-care (01) | DRG 291 ==
LOC: ER 18:49 → 6 SOUTH 21:40
PROVIDERS: ADMIT Internal Medicine; ATTEND Internal Medicine
DX: I11.0 Hypertensive heart disease with heart failure (principal); I50.31 Acute diastolic (congestive) heart failure; U07.1 COVID-19; Z68.42 Body mass index [BMI] 45.0-49.9, adult; E03.9 Hypothyroidism, unspecified; E66.01 Morbid (severe) obesity due to excess calories; F32.A Depression, unspecified; F41.9 Anxiety disorder, unspecified; E11.42 Type 2 diabetes mellitus with diabetic polyneuropathy; I48.91 Unspecified atrial fibrillation; J44.9 Chronic obstructive pulmonary disease, unspecified; Z20.822 Contact with and (suspected) exposure to COVID-19; Z96.659 Presence of unspecified artificial knee joint; G89.29 Other chronic pain; K21.9 Gastro-esophageal reflux disease without esophagitis; M19.90 Unspecified osteoarthritis, unspecified site; M54.50 Low back pain, unspecified; I95.9 Hypotension, unspecified; R79.89 Other specified abnormal findings of blood chemistry; Z82.49 Family history of ischemic heart disease and other diseases of the circulatory system; Z87.891 Personal history of nicotine dependence; Z90.49 Acquired absence of other specified parts of digestive tract; Z90.710 Acquired absence of both cervix and uterus
CPT/HCPCS: 36415; 71275; 74177; 76705; 80048; 80053; 81001; 82962; 83605; 83690; 83735; 83880; 84100; 84484; 85025; 85379; 85610; 87040; 87428; 93005; 93306; 96361; 96365; 96375; J2405; J3490; J7030; J7060; Q9967; U0003; 99285-25; C8929; G0378

== ENCOUNTER → 2021-11-19 | Outpatient (CLI) | payer MEDICARE, BC ==
[~2021-11-19] MED LIST changes: +APIX5TAB PO; +CALC500T54 PO; +DILT240C33 PO; +HYDR-2765 PO; +LEVO100T5 PO; +METF10007 PO; +URSO250T3 PO; +VIBE75TA PO
[2021-11-19 15:02] LABS: BASO # 0.1 x10^3/uL (0.0-0.2); BASO % 1 % (0-3); EOS # 0.2 x10^3/uL (0.0-0.7); EOS % 2 % (0-3); HEMATOCRIT 41.1 % (36.0-47.0); HEMOGLOBIN 13.8 g/dL (12.0-15.5); LYMPH # 2.5 x10^3/uL (1.0-4.8); LYMPH % 24 % (24-48); MEAN CORPUSCULAR HEMOGLOBIN 31 pg (25-35); MEAN CORPUSCULAR HGB CONC 34 g/dL (31-37); MEAN CORPUSCULAR VOLUME 92 fL (79-100); MONO % 9 % (0-9); NEUT # 6.8 x10^3/uL (1.8-7.7); NEUT % 64 % (31-73); PLATELET COUNT 359 x10^3/uL (140-400); RED BLOOD COUNT 4.47 x10^6/uL (3.50-5.40); RED CELL DISTRIBUTION WIDTH 14.8 % (11.5-14.5); WHITE BLOOD COUNT 10.7 x10^3/uL (4.0-11.0)
[2021-11-19 15:11] LABS: CREATININE 1.2 mg/dL (0.6-1.0); GFR 43.9; POTASSIUM 4.3 mmol/L (3.5-5.1)
[2021-11-19 15:21] LABS: ALBUMIN/GLOBULIN RATIO 0.6 (1.0-1.7); TOTAL BILIRUBIN 0.4 mg/dL (0.2-1.0); TOTAL PROTEIN 7.8 g/dL (6.4-8.2)
== END ==
LOC: ONCLAB 14:38
PROVIDERS: ATTEND Internal Medicine Hematology & Oncology
DX: C15.5 Malignant neoplasm of lower third of esophagus (principal)
CPT/HCPCS: 36415; 80053; 85025

== ENCOUNTER → 2021-12-27 | Outpatient (CLI) | payer BC, MEDICARE ==
[~2021-12-27] VITALS: Ht 160 cm; Wt 106.4 kg
[~2021-12-27] MED LIST changes: +LIDOCAINE 1%/EPI 1:100,000 20 ML VIAL. ONE; +LIDOCAINE 1%/EPI 1:100,000 20 ML VIAL. SQ ONE; +MIDAZOLAM HCL/PF 2 MG/2 ML VIAL. IV ONE; +MIDAZOLAM HCL/PF 2 MG/2 ML VIAL. ONE; +MOME13HF IH; +fentaNYL PF VIAL 100 MCG/2 ML VIAL IV ONE; +fentaNYL PF VIAL 100 MCG/2 ML VIAL ONE
[2021-12-27 08:57] LABS: BASO # 0.1 x10^3/uL (0.0-0.2); BASO % 1 % (0-3); EOS # 0.2 x10^3/uL (0.0-0.7); EOS % 3 % (0-3); HEMATOCRIT 38.9 % (36.0-47.0); HEMOGLOBIN 12.9 g/dL (12.0-15.5); LYMPH # 2.1 x10^3/uL (1.0-4.8); LYMPH % 26 % (24-48); MEAN CORPUSCULAR HEMOGLOBIN 30 pg (25-35); MEAN CORPUSCULAR HGB CONC 33 g/dL (31-37); MEAN CORPUSCULAR VOLUME 91 fL (79-100); MONO # 0.7 x10^3/uL (0.0-1.1); MONO % 9 % (0-9); NEUT # 4.9 x10^3/uL (1.8-7.7); NEUT % 61 % (31-73); PLATELET COUNT 348 x10^3/uL (140-400); RED BLOOD COUNT 4.29 x10^6/uL (3.50-5.40); RED CELL DISTRIBUTION WIDTH 15.3 % (11.5-14.5)
[2021-12-27 09:01] VITALS: BP 153/81
[2021-12-27 09:07] LABS: PROTHROMBIN TIME PATIENT 13.2 SEC (11.7-14.0)
[2021-12-27 10:38] VITALS: BP 155/86
[2021-12-27 10:45] VITALS: BP 175/87
[2021-12-27 11:15] VITALS: BP 98/77
[2021-12-27 11:30] VITALS: BP 113/68
--- NOTE | 2021-12-27 11:54 | NUR ---
Discharge Note: YADI CUNNINGHAM Discharge instructions and discharge home medications reviewed with Patient and a copy given. All questions have been answered and understanding verbalized. The following instructions and handouts were given: implanted port, sedation, portacath information packet Dressing to R chest dry and intact Discontinued lines and drains: Peripheral IV intact. Patient discharged to Home or Self Care with Family Member via Wheelchair [facility] Addendum: 12/27/21 at 1213 by ENE ROMEO RN Amended: Links added.
--- NOTE | 2021-12-27 15:55 | RAD ---
PROCEDURE: Fluoroscopically and ultrasound-guided placement of right internal jugular tunnel central venous catheter with port (Bard PowerPort, Groshong tip ). Clinical Indication: Esophageal cancer Discussion: The risks and benefits of the procedure were discussed with the patient and/or their payroll representative. Informed consent was obtained. The patient was brought to the fluoroscopy suite and placed in supine position. A time out procedure was performed. The right neck and chest were prepped and draped using maximum sterile barrier technique including th e use of: Current guideline approved cutaneous antisepsis, a large sterile sheet to establish a steri le field. Additionally the pocketed spring machine operator wore a hat, mask, sterile gloves, a sterile gown during the proce dure as well as practiced acceptable hand hygiene prior to placing the port. Ultrasound-guided access: Ultrasound evaluation showed the right jugular vein to be patent and compr essible. 1 % lidocaine with epinephrine was administered to the skin and subcutaneous tissues overlyi ng the right neck and chest. Under direct ultrasound guidance a single wall puncture was made followe d by tract dilation and placement of a sheath. An ultrasound image was saved and sent to PACS. Next, an incision was made in an infraclavicular location and a pocket created. The catheter was tunneled between the pocket and the venotomy site. The catheter was advanced through the peel away sheath, u nder fluoroscopic guidance, such that it's tip was in the mid right atrium. The catheter was connecte d to the port reservoir. The port was accessed and found to flush and aspirate normally. The reservoi r was then placed into the subcutaneous pocket. The wound was closed in layers using 3 Vicryl and 4- 0 Vicryl suture. Dermabond was applied overlying the wound, and venotomy site. The patient tolerated procedure without immediate complication. Sedation: Conscious sedation was performed for 30 minutes. Sedation was carried out while the patie nt was continually monitored by a member of the Radiology nursing staff. Continual cardiopulmonary m onitoring was carried out during the procedure. The patient tolerated the procedure well and there w ere no immediate complications. Fluoroscopy time: 0.9 mins Dose area product 5 Sam centimeter squared Impression: Successful ultrasound and fluoroscopically guided placement of right internal jugular lori tammie central venous catheter with port (Bard PowerPort, Groshong tip). Electronically signed by: Jimmy Javier MD (12/27/2021 3:53 PM) [id number]
== END | disposition home or self-care (01) ==
LOC: INTRAD 08:07
PROVIDERS: ATTEND Internal Medicine Hematology & Oncology
DX: Z45.2 Encounter for adjustment and management of vascular access device (principal); C15.5 Malignant neoplasm of lower third of esophagus; J44.9 Chronic obstructive pulmonary disease, unspecified; I10 Essential (primary) hypertension; E66.9 Obesity, unspecified; E11.9 Type 2 diabetes mellitus without complications; K21.9 Gastro-esophageal reflux disease without esophagitis; E03.9 Hypothyroidism, unspecified; Z90.49 Acquired absence of other specified parts of digestive tract; Z98.51 Tubal ligation status; Z98.890 Other specified postprocedural states; Z87.891 Personal history of nicotine dependence; Z79.84 Long term (current) use of oral hypoglycemic drugs; Z79.899 Other long term (current) drug therapy; Z72.89 Other problems related to lifestyle
CPT/HCPCS: 36415; 36561; 76937; 77001; 85025; 85610; 99152; 99153; C1788; C1892; J0690; J2250; J3010; J3490

== ENCOUNTER → 2021-12-31 | Outpatient (CLI) | payer MEDICARE, BC ==
[2021-12-27 11:30] VITALS: BP 113/68
[~2021-12-31] MED LIST changes: -LIDOCAINE 1%/EPI 1:100,000 20 ML VIAL. ONE; -LIDOCAINE 1%/EPI 1:100,000 20 ML VIAL. SQ ONE; -MIDAZOLAM HCL/PF 2 MG/2 ML VIAL. IV ONE; -MIDAZOLAM HCL/PF 2 MG/2 ML VIAL. ONE; -fentaNYL PF VIAL 100 MCG/2 ML VIAL IV ONE; -fentaNYL PF VIAL 100 MCG/2 ML VIAL ONE
[2021-12-31 11:08] LABS: BASO # 0.1 x10^3/uL (0.0-0.2); BASO % 1 % (0-3); EOS # 0.1 x10^3/uL (0.0-0.7); EOS % 1 % (0-3); HEMATOCRIT 36.5 % (36.0-47.0); HEMOGLOBIN 12.2 g/dL (12.0-15.5); LYMPH # 1.9 x10^3/uL (1.0-4.8); LYMPH % 23 % (24-48); MEAN CORPUSCULAR HEMOGLOBIN 31 pg (25-35); MEAN CORPUSCULAR HGB CONC 34 g/dL (31-37); MEAN CORPUSCULAR VOLUME 91 fL (79-100); MONO # 0.9 x10^3/uL (0.0-1.1); MONO % 11 % (0-9); NEUT # 5.2 x10^3/uL (1.8-7.7); NEUT % 64 % (31-73); PLATELET COUNT 326 x10^3/uL (140-400); WHITE BLOOD COUNT 8.1 x10^3/uL (4.0-11.0)
[2021-12-31 11:20] LABS: CALCIUM 9.8 mg/dL (8.5-10.1); GFR 54.2; POTASSIUM 3.5 mmol/L (3.5-5.1)
[2021-12-31 11:26] LABS: ALBUMIN 2.5 g/dL (3.4-5.0); ALBUMIN/GLOBULIN RATIO 0.5 (1.0-1.7); TOTAL BILIRUBIN 0.5 mg/dL (0.2-1.0); TOTAL PROTEIN 7.5 g/dL (6.4-8.2)
== END ==
LOC: ONCLAB 10:48
PROVIDERS: ATTEND Internal Medicine Hematology & Oncology
DX: C15.5 Malignant neoplasm of lower third of esophagus (principal)
CPT/HCPCS: 36415; 80053; 85025